=== PATIENT | female | born 1970 | race Asian ===

== ENCOUNTER → 2018-01-10 09:54 | Outpatient (CLI) | payer OTHER, SELFPAY ==
--- NOTE | 2018-01-10 | DI.MG.S_ITS ---
BILATERAL DIGITAL SCREENING MAMMOGRAM 3D/2D WITH CAD: 01/10/2018 Comparison is made to exams dated: 11/19/2013 mammogram and 11/20/2012 mammogram - [facility]. The tissue of both breasts is heterogeneously dense. This may lower the sensitivity of mammography. Current study was also evaluated with a Computer Aided Detection (CAD) system. No significant masses, calcifications, or other findings are seen in either breast. There has been no significant interval change. IMPRESSION: NEGATIVE There is no mammographic evidence of malignancy. A 1 year screening mammogram is recommended. This exam was interpreted at Station ID: [id number]. NOTE: For mammograms, a report in lay terms will be sent to the patient. Approximately 15% of breast malignancies will not be visualized mammographically. In the management of a palpable breast mass, a negative mammogram must not discourage biopsy of a clinically suspicious lesion. Electronically Signed By: Jarred valencia/regina:01/10/2018 16:13:13 letter sent: Normal Exam ACR BI-RADS Category 1: Negative 3341F
== END ==
PROVIDERS: Visit Provider Physician Assistant
DX: Z12.31 Encounter for screening mammogram for malignant neoplasm of breast (principal)
CPT/HCPCS: 77063; 77067

== ENCOUNTER → 2018-09-12 10:49 | Outpatient (CLI) | payer OTHER, SELFPAY ==
[2018-09-12 12:16] LABS: Alanine Aminotransferase 50 IU/L (9-52); Albumin 4.2 g/dL (3.5-5.0); Albumin Globulin Ratio 1.4 (1.0-2.8); Alkaline Phosphatase 79 U/L (38-126); Aspartate Aminotransferase 31 IU/L (14-36); Bilirubin Total 0.4 mg/dL (0.2-1.3); Bilirubin Unconjugated 0.3 mg/dL (0.0-1.1); Cholesterol 222 mg/dL (140-199); Globulin 2.9 g/dL (1.7-4.1); HDL Cholesterol 42 mg/dL (40-60); HEMOLYSIS < 15 (0-50); LDL Cholesterol Calculated 146 mg/dL (<100); Total Protein 7.1 g/dL (6.3-8.2); Triglycerides 168 mg/dL (35-150)
== END ==
PROVIDERS: Visit Provider Nurse Practitioner Family
DX: R94.5 Abnormal results of liver function studies (principal); E78.2 Mixed hyperlipidemia
CPT/HCPCS: 36415; 80061; 80076

== ENCOUNTER → 2018-12-14 09:41 | Outpatient (CLI) | payer OTHER, SELFPAY ==
[2018-12-14 10:22] LABS: Hemoglobin 14.1 g/dL (12.0-16.0); Mean Corpuscular HGB Conc 32.7 % (30-36); Mean Corpuscular Hemoglobin 25.6 PG (26-34); Mean Corpuscular Volume 78.2 fL (80-100); Platelet Count 351 X10^3/uL (150-400); Red Cell Distribution Width 13.8 % (11.6-14.8); White Blood Cell Count 10.2 X10^3/uL (4.5-11.0)
[2018-12-14 10:47] LABS: Alanine Aminotransferase 47 IU/L (9-52); Albumin 4.4 g/dL (3.5-5.0); Albumin Globulin Ratio 1.5 (1.0-2.8); Alkaline Phosphatase 92 U/L (38-126); Aspartate Aminotransferase 31 IU/L (14-36); BUN Creatinine Ratio 17.1 (6-22); Bilirubin Total 0.6 mg/dL (0.2-1.3); Blood Urea Nitrogen 12 mg/dL (7-17); Calcium 10.1 mg/dL (8.4-10.2); Carbon Dioxide 27 mmol/L (22-32); Chloride 101 mmol/L (98-107); Cholesterol 131 mg/dL (140-199); Estimated Glomerular Filt Rate > 60.0 mL/min (>60); Globulin 2.9 g/dL (1.7-4.1); Glucose 111 mg/dL (70-100); HDL Cholesterol 46 mg/dL (40-60); HEMOLYSIS < 15 (0-50); LDL Cholesterol Calculated 61 mg/dL (<100); Potassium 5.2 mmol/L (3.4-5.1); Sodium 139 mmol/L (137-145); Total Protein 7.3 g/dL (6.3-8.2); Triglycerides 118 mg/dL (35-150)
== END ==
PROVIDERS: PCP Nurse Practitioner Family; Visit Provider Nurse Practitioner Family
DX: Z00.00 Encounter for general adult medical examination without abnormal findings (principal); E78.2 Mixed hyperlipidemia
CPT/HCPCS: 36415; 80053; 80061; 85027

== ENCOUNTER → 2019-01-18 07:32 | Outpatient (CLI) | payer OTHER, SELFPAY ==
--- NOTE | 2019-01-18 07:33 | DI.MG.S_ITS ---
BILATERAL DIGITAL SCREENING MAMMOGRAM 3D/2D WITH CAD: 01/18/2019 CLINICAL: Routine screening. Comparison is made to exams dated: 01/10/2018 mammogram - [facility], 11/19/2013 mammogram, and 11/20/2012 mammogram - [facility]. The tissue of both breasts is heterogeneously dense. This may lower the sensitivity of mammography. Current study was also evaluated with a Computer Aided Detection (CAD) system. There are benign calcifications in both breasts. No significant masses, calcifications, or other findings are seen in either breast. There has been no significant interval change. IMPRESSION: There is no mammographic evidence of malignancy. A 1 year screening mammogram is recommended. This exam was interpreted at Station ID: [id number]. NOTE: For mammograms, a report in lay terms will be sent to the patient. Approximately 15% of breast malignancies will not be visualized mammographically. In the management of a palpable breast mass, a negative mammogram must not discourage biopsy of a clinically suspicious lesion. Electronically Signed By: David monzon/regina:01/18/2019 10:03:53 letter sent: Normal Exam ACR BI-RADS Category 2: Benign Finding(s) 3342F
== END ==
PROVIDERS: PCP Nurse Practitioner Family; Visit Provider Nurse Practitioner Family
DX: Z12.31 Encounter for screening mammogram for malignant neoplasm of breast (principal)
CPT/HCPCS: 77063; 77067

== ENCOUNTER → 2019-03-22 08:32 | Outpatient (CLI) | payer OTHER, SELFPAY ==
[2019-03-22 09:27] LABS: Hemoglobin A1C% w Est Avg Glu 7.2 % (4.0-6.0)
[2019-03-22 09:37] LABS: Glucose 129 mg/dL (70-100)
== END ==
PROVIDERS: PCP Nurse Practitioner Family; Visit Provider Nurse Practitioner Family
DX: R73.01 Impaired fasting glucose (principal); Z01.83 Encounter for blood typing
CPT/HCPCS: 36415; 82947; 83036; 86900; 86901

== ENCOUNTER → 2019-06-21 07:45 | Outpatient (CLI) | payer OTHER, SELFPAY ==
[2019-06-21 08:25] LABS: Hemoglobin A1C% w Est Avg Glu 6.4 % (4.0-6.0)
== END ==
PROVIDERS: PCP Nurse Practitioner Family; Referring Provider Nurse Practitioner Family; Visit Provider Nurse Practitioner Family
DX: E11.9 Type 2 diabetes mellitus without complications (principal)
CPT/HCPCS: 36415; 83036

== ENCOUNTER → 2019-09-24 08:17 | Outpatient (CLI) | payer OTHER, SELFPAY ==
[2019-09-24 10:16] LABS: Hemoglobin A1C% w Est Avg Glu 6.1 % (4.0-6.0)
[2019-09-24 10:33] LABS: BUN Creatinine Ratio 12.2 (6-22); Blood Urea Nitrogen 9 mg/dL (7-17); Calcium 9.8 mg/dL (8.4-10.2); Carbon Dioxide 27 mmol/L (22-32); Chloride 104 mmol/L (98-107); Estimated Glomerular Filt Rate > 60.0 mL/min (>60); Glucose 93 mg/dL (70-100); HEMOLYSIS < 15 (0-50); Potassium 5.1 mmol/L (3.4-5.1); Sodium 138 mmol/L (137-145)
== END ==
PROVIDERS: PCP Nurse Practitioner Family; Referring Provider Nurse Practitioner Family; Visit Provider Nurse Practitioner Family
DX: E11.9 Type 2 diabetes mellitus without complications (principal)
CPT/HCPCS: 36415; 80048; 83036

== ENCOUNTER → 2020-01-21 08:25 | Outpatient (CLI) | payer OTHER, SELFPAY ==
--- NOTE | 2020-01-21 | DI.MG.S_ITS ---
BILATERAL DIGITAL SCREENING MAMMOGRAM 3D/2D WITH CAD: 01/21/2020 CLINICAL: Routine screening. Comparison is made to exams dated: 01/18/2019 mammogram, 01/10/2018 mammogram - [facility], and 11/19/2013 mammogram - [facility]. The tissue of both breasts is heterogeneously dense. This may lower the sensitivity of mammography. Current study was also evaluated with a Computer Aided Detection (CAD) system. No significant masses, calcifications, or other findings are seen in either breast. There has been no significant interval change. IMPRESSION: NEGATIVE There is no mammographic evidence of malignancy. A 1 year screening mammogram is recommended. This exam was interpreted at Station ID: [id number]. NOTE: For mammograms, a report in lay terms will be sent to the patient. Approximately 15% of breast malignancies will not be visualized mammographically. In the management of a palpable breast mass, a negative mammogram must not discourage biopsy of a clinically suspicious lesion. Electronically Signed By: Faye thorne/regina:01/21/2020 10:12:46 letter sent: Normal Exam ACR BI-RADS Category 1: Negative 3341F
== END ==
PROVIDERS: PCP Nurse Practitioner Family; Referring Provider Nurse Practitioner Family; Visit Provider Nurse Practitioner Family
DX: Z12.31 Encounter for screening mammogram for malignant neoplasm of breast (principal)
CPT/HCPCS: 77063; 77067

== ENCOUNTER → 2020-03-25 07:58 | Outpatient (CLI) | payer OTHER, SELFPAY ==
[2020-03-25 09:56] LABS: Alanine Aminotransferase 22 IU/L (<35); Albumin 4.2 g/dL (3.5-5.0); Albumin Globulin Ratio 1.4 (1.0-2.8); Alkaline Phosphatase 64 U/L (38-126); Aspartate Aminotransferase 21 IU/L (14-36); BUN Creatinine Ratio 14.7 (6-22); Bilirubin Total 0.5 mg/dL (0.2-1.3); Blood Urea Nitrogen 11 mg/dL (7-17); Calcium 9.3 mg/dL (8.4-10.2); Carbon Dioxide 29 mmol/L (22-32); Chloride 104 mmol/L (98-107); Estimated Glomerular Filt Rate > 60.0 mL/min (>60); Glucose 101 mg/dL (70-100); HEMOLYSIS < 15 (0-50); Potassium 4.5 mmol/L (3.4-5.1); Sodium 138 mmol/L (137-145); Total Protein 7.2 g/dL (6.3-8.2)
[2020-03-25 10:24] LABS: Hemoglobin A1C% w Est Avg Glu 6.1 % (4.0-6.0)
== END ==
PROVIDERS: PCP Nurse Practitioner Family; Referring Provider Nurse Practitioner Family; Visit Provider Nurse Practitioner Family
DX: E11.9 Type 2 diabetes mellitus without complications (principal)
CPT/HCPCS: 36415; 80053; 83036

== ENCOUNTER → 2020-03-27 11:13 | Outpatient (CLI) | payer OTHER, SELFPAY ==
[2020-03-27 12:20] LABS: Cholesterol 144 mg/dL (140-199); HDL Cholesterol 54 mg/dL (40-60); LDL Cholesterol Calculated 66 mg/dL (<100); Triglycerides 119 mg/dL (35-150)
== END ==
PROVIDERS: PCP Nurse Practitioner Family; Visit Provider Nurse Practitioner Family
DX: E78.5 Hyperlipidemia, unspecified (principal)
CPT/HCPCS: 80061

== ENCOUNTER → 2020-11-14 07:53 | Outpatient (CLI) | payer OTHER, SELFPAY ==
[2020-11-14 08:52] LABS: Add Manual Diff / Slide Review NO; Basophils Absolute Auto 0 /uL (0-100); Basophils Percent Auto 0.4 % (0-2); Eosinophils Absolute Auto 500 /uL (0-450); Eosinophils Percent Auto 6.6 % (2-4); Hematocrit 40.3 % (36-46); Hemoglobin 13.3 g/dL (12.0-16.0); Lymphocytes Absolute Auto 2200 /uL (1100-4500); Lymphocytes Percent Auto 28.6 % (25-40); Mean Corpuscular HGB Conc 33.1 % (30-36); Mean Corpuscular Volume 78.7 fL (80-100); Monocytes Absolute Auto 400 /uL (0-900); Monocytes Percent Auto 5.5 % (3-14); Neutrophils Absolute Auto 4500 /uL (1500-7000); Neutrophils Percent Auto 58.9 % (50-75); Platelet Count 358 X10^3/uL (150-400); Red Blood Cell Count 5.12 X10^6/uL (4.0-5.2); Red Cell Distribution Width 13.9 % (11.6-14.8); White Blood Cell Count 7.6 X10^3/uL (4.5-11.0)
[2020-11-14 08:57] LABS: HEMOLYSIS < 15 (0-50); Iron 143 ug/dL (37-170)
[2020-11-14 09:11] LABS: Percent Iron Saturation 41 % (15-50); Total Iron Binding Capacity 349 ug/dL (265-497); Transferrin 272 mg/dL (206-381)
[2020-11-14 09:34] LABS: Ferritin 13 ng/mL (6-137)
== END ==
PROVIDERS: PCP Nurse Practitioner Family; Referring Provider Nurse Practitioner Family; Visit Provider Nurse Practitioner Family
DX: Z86.39 Personal history of other endocrine, nutritional and metabolic disease (principal)
CPT/HCPCS: 36415; 82728; 83540; 83550; 85025

== ENCOUNTER → 2020-12-05 08:09 | Outpatient (CLI) | payer OTHER, SELFPAY ==
[2020-12-05 09:47] LABS: Hemoglobin A1C% w Est Avg Glu 6.2 % (4.0-6.0)
[2020-12-05 09:49] LABS: Alanine Aminotransferase 36 IU/L (<35); Albumin 4.6 g/dL (3.5-5.0); Albumin Globulin Ratio 1.7 (1.0-2.8); Alkaline Phosphatase 74 U/L (38-126); Aspartate Aminotransferase 27 IU/L (14-36); BUN Creatinine Ratio 12.7 (6-22); Bilirubin Total 0.7 mg/dL (0.2-1.3); Blood Urea Nitrogen 9 mg/dL (7-17); Calcium 9.6 mg/dL (8.4-10.2); Carbon Dioxide 26 mmol/L (22-32); Chloride 105 mmol/L (98-107); Cholesterol 141 mg/dL (140-199); Estimated Glomerular Filt Rate > 60.0 mL/min (>60); Globulin 2.7 g/dL (1.7-4.1); Glucose 110 mg/dL (70-100); HDL Cholesterol 54 mg/dL (40-60); HEMOLYSIS < 15 (0-50); LDL Cholesterol Calculated 64 mg/dL (<100); Potassium 5.1 mmol/L (3.4-5.1); Sodium 139 mmol/L (137-145); Total Protein 7.3 g/dL (6.3-8.2); Triglycerides 117 mg/dL (35-150)
== END ==
PROVIDERS: PCP Nurse Practitioner Family; Referring Provider Nurse Practitioner Family; Visit Provider Nurse Practitioner Family
DX: R00.2 Palpitations (principal); E11.9 Type 2 diabetes mellitus without complications; E78.2 Mixed hyperlipidemia
CPT/HCPCS: 36415; 80053; 80061; 83036

== ENCOUNTER → 2021-01-23 09:16 | Outpatient (CLI) | payer OTHER, SELFPAY ==
--- NOTE | 2021-01-23 | DI.MG.S_ITS ---
BILATERAL DIGITAL SCREENING MAMMOGRAM 3D/2D WITH CAD: 01/23/2021 CLINICAL: Routine screening. Comparison is made to exams dated: 01/21/2020 mammogram, 01/18/2019 mammogram, 01/10/2018 mammogram - [facility], and 11/19/2013 mammogram - [facility]. The tissue of both breasts is heterogeneously dense. This may lower the sensitivity of mammography. Current study was also evaluated with a Computer Aided Detection (CAD) system. No significant masses, calcifications, or other findings are seen in either breast. There has been no significant interval change. IMPRESSION: NEGATIVE There is no mammographic evidence of malignancy. A 1 year screening mammogram is recommended. This exam was interpreted at Station ID: [id number]. NOTE: For mammograms, a report in lay terms will be sent to the patient. Approximately 15% of breast malignancies will not be visualized mammographically. In the management of a palpable breast mass, a negative mammogram must not discourage biopsy of a clinically suspicious lesion. Electronically Signed By: Mando medina/regina:01/23/2021 12:06:10 letter sent: Normal Exam ACR BI-RADS Category 1: Negative 3341F
== END ==
PROVIDERS: PCP Nurse Practitioner Family; Referring Provider Nurse Practitioner Family; Visit Provider Nurse Practitioner Family
DX: Z12.31 Encounter for screening mammogram for malignant neoplasm of breast (principal)
CPT/HCPCS: 77063; 77067

== ENCOUNTER → 2021-02-10 08:06 | Outpatient (CLI) | payer OTHER, SELFPAY ==
--- NOTE | 2021-02-10 08:07 | DI.US.S_ITS ---
PROCEDURE: US PELVIC COMPLETE INDICATIONS: DUB; IUD PLACEMENT TECHNIQUE: Real-time scanning was performed of the pelvic organs, with image documentation. Additional endovaginal scanning was necessary due to incomplete visualization of the adnexal and endometrial structures by transabdominal scanning. COMPARISON: None. FINDINGS: Uterus: Uterus is normal in size at 14.5 x 10.7 x 10.0 cm. The endometrium measures 19.1 mm in combined thickness. Anterior submucosal fibroid measuring 16 mm and there is an anterior intramural fibroid measuring up to 6.4 cm. Intrauterine device is suboptimally visualized. Ovaries: Right ovary is not visualized. Normal left ovary measuring 4.2 x 2.6 x 3.7 cm. Simple 3.1 cm left ovarian cyst. Other: No pathologic free abdominal or pelvic fluid. IMPRESSION: 1. 2 uterine fibroids, largest measuring up to 6.4 cm and the intrauterine device is not well visualized. 2. Mild thickening of the endometrial complex. Recommend short-term follow-up pelvic ultrasound in 6 weeks to assess for interval thinning. 3. Simple left ovarian cyst. Dictated by: Mango Ho [facility] Interpreted: Lilly Garcia MD on 02/10/2021 at 16:59 Approved by: Lilly Garcia MD, PhD on 02/10/2021 at 18:07
== END ==
PROVIDERS: PCP Nurse Practitioner Family; Referring Provider Nurse Practitioner Family; Visit Provider Nurse Practitioner Family
DX: N92.6 Irregular menstruation, unspecified (principal); D25.1 Intramural leiomyoma of uterus; D25.0 Submucous leiomyoma of uterus; N83.292 Other ovarian cyst, left side; R93.89 Abnormal findings on diagnostic imaging of other specified body structures; Z97.5 Presence of (intrauterine) contraceptive device
CPT/HCPCS: 76830; 76856

== ENCOUNTER → 2021-03-11 11:10 | Outpatient (CLI) | payer OTHER, SELFPAY ==
[2021-03-11 12:48] LABS: COVID19 -Nasal RAPID Negative (Negative)
== END ==
PROVIDERS: PCP Nurse Practitioner Family; Visit Provider Physician Assistant
DX: Z20.822 Contact with and (suspected) exposure to COVID-19 (principal)
CPT/HCPCS: 87635

== ENCOUNTER → 2021-03-13 13:29 | Outpatient (CLI) | payer OTHER, SELFPAY ==
--- NOTE | 2021-03-13 13:30 | DI.ECHO.S_ITS ---
[facility] +---------+ : : [address] [place] : : : : [id number] : : : : Phone: [phone]+ Echocardiogram Report + + :Name: MELODY SUE V Study Date: 03/13/2021 Height: 60 in : :[facility] ReadingLocation: Weight: 175 lb : : Gender: Female BSA: 1.8 m2 : :: 1970 Age: 50 yrs BP: 164/100 mmHg: :Reason For Study: Palpitations, abnormal EKG : : Performed By: Daniel Keith : :Referring: LEEANNE MCLAIN : + + Interpretation Summary The left ventricle is normal in size. The ejection fraction is estimated to be 60-65%. The right ventricle is normal in size and function. 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 Please repeat limited echo with bubble contrast study. If it is abnormal consider JOHN. Correlate clinically. No significant valvular pathology seen. The IVC is of normal diameter and collapses greater than 50% with a sniff. This suggests a low right atrial pressure of 3 mm Hg. Procedure: A two-dimensional transthoracic echocardiogram with color flow and Doppler was performed. The study quality was technically adequate. There is no prior echocardiogram noted for this patient. The patient was in normal sinus rhythm during the exam. Left Ventricle: The left ventricle is normal in size. Proximal septal thickening is noted. There is no echo evidence for significant left ventricular outflow tract obstruction. There is no thrombus. The ejection fraction is estimated to be 60-65%. There are no focal wall motion abnormalities. Diastolic parameters suggest probable normal left ventricular diastolic function and normal filling pressures. Right Ventricle: The right ventricle is normal in size and function. Atria: Both atria are normal in size. A prominent eustachian valve is noted. 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 Please repeat limited echo with bubble contrast study. If it is abnormal consider JOHN. Correlate clinically. Mitral Valve: The mitral valve is normal. There is trace mitral regurgitation. Aortic Valve: The aortic valve is trileaflet. The aortic valve opens well. There is trace aortic regurgitation. Tricuspid Valve: The tricuspid valve is normal. There is mild tricuspid regurgitation. The right ventricular systolic pressure is estimated to be at least 28 mmHg based on an estimated right atrial pressure of 3 mm Hg. Pulmonic Valve: The pulmonic valve is normal in structure and function. Great Vessels: The aortic root is normal size. The ascending aorta is normal in size. The aortic arch is normal in size. The IVC is of normal diameter and collapses greater than 50% with a sniff. This suggests a low right atrial pressure of 3 mm Hg. Pericardium/ Pleura There is no pericardial effusion. There is no pleural effusion. MMode/2D Measurements & Calculations LVIDd: 3.7 cm LVOT diam: 1.6 cm LVIDs: 2.2 cm Ao root diam: 2.9 cm FS: 40.7 % asc Aorta Diam: 3.1 cm IVSd: 0.88 cm Ao Arch Diam (Prox Trans): 2.8 cm LVPWd: 1.00 cm LV reardon. diameter/BSA (cm/m^2): 2.1 LV sys. diameter/BSA (cm/m^2): 1.3 LA A2 area: 13.0 cm2 RA long axis: 4.5 cm LA A4 area: 15.4 cm2 RA area: 11.8 cm2 LA length (vol): 5.2 cm RA vol: 26.2 ml LA vol: 32.9 ml RA : 14.8 ml/m2 LA vol index: 18.7 ml/m2 TAPSE: 2.9 cm Doppler Measurements & Calculations Ao V2 max: 133.0 cm/sec LVOT Max Mukund: 128.6 cm/sec Ao V2 mean: 103.0 cm/sec LV V1 max P.6 mmHg Ao max P.1 mmHg LV V1 VTI: 27.5 cm Ao mean P.5 mmHg DANIEL(I,D): 1.9 cm2 Ao V2 VTI: 29.1 cm DANIEL(V,D): 2.0 cm2 sev ratio: 0.95 DANIEL indexed to BSA (cm^2/m^2): 1.1 MV E max mukund: 84.6 cm/sec TR max mukund: 247.4 cm/sec MV A max mukund: 43.6 cm/sec TR max P.5 mmHg MV E/A: 1.9 PA V2 max: 124.4 cm/sec Med Peak E' Mukund: 9.6 cm/sec PA V2 mean: 87.4 cm/sec E/E' med: 8.8 PA mean P.3 mmHg Lat Peak E' Mukund: 11.6 cm/sec PA pr(Accel): 43.0 mmHg E/E' lat: 7.3 E/e' average: 8.0 MV dec time: 0.19 sec [facility]): 55.8 ml Reading Physician:03:24 PM
--- NOTE | 2021-03-13 19:26 | DI.NM.S_ITS ---
DATE OF SERVICE: 03/13/2021 PROCEDURE PERFORMED: Exercise treadmill stress test without imaging. ORDERING PROVIDER: SURENDRA Sharif. INDICATIONS: The patient is a 50-year-old diabetic female with recurrent palpitations. FINDINGS: 1. The patient was able to exercise for 6 minutes, 37 seconds on a standard Elvis protocol, suggesting moderately reduced exercise capacity with an OLLIE of +19%, achieving 7.0 METs. 2. She had a normal heart rate response to exercise, achieving a maximum heart rate of 172 BPM (100% of her predicted maximum). She had a hypertensive blood pressure response to exercise with a resting blood pressure of 154/90 that increased to a maximum of 220/110. 3. She had no chest discomfort or other anginal symptoms. 4. Her resting ECG shows sinus rhythm with mild nonspecific inferior ST- segment abnormalities. With exercise, there are no significant ST-segment shifts. There were no arrhythmias. IMPRESSION: 1. Normal exercise treadmill stress test for ischemia. 2. Moderately reduced exercise capacity without angina or arrhythmias. She had a significant hypertensive blood pressure response to exercise. Debi Martinez - ADALID/norma/thanh doc#: [id number]/job#: [id number] dd: 03/13/2021 17:30:00 dt: 03/13/2021 18:35:00 DICTATING /COPIES TO: Ra Gamboa MD COPIES MNE: MIGUEL;
== END ==
PROVIDERS: PCP Nurse Practitioner Family; Referring Provider Nurse Practitioner Family; Visit Provider Nurse Practitioner Family
DX: R00.2 Palpitations (principal); E11.9 Type 2 diabetes mellitus without complications
CPT/HCPCS: 93017; 93306

== ENCOUNTER → 2021-11-17 07:38 | Outpatient (CLI) | payer OTHER, SELFPAY ==
[2021-11-17 08:48] LABS: Add Manual Diff / Slide Review NO; Basophils Absolute Auto 0 /uL (0-100); Basophils Percent Auto 0.4 % (0-2); Eosinophils Absolute Auto 300 /uL (0-450); Eosinophils Percent Auto 4.6 % (2-4); Hematocrit 34.8 % (36-46); Hemoglobin 11.3 g/dL (12.0-16.0); Lymphocytes Absolute Auto 2200 /uL (1100-4500); Lymphocytes Percent Auto 29.4 % (25-40); Mean Corpuscular HGB Conc 32.5 % (30-36); Mean Corpuscular Hemoglobin 23.6 PG (26-34); Mean Corpuscular Volume 72.7 fL (80-100); Monocytes Absolute Auto 600 /uL (0-900); Monocytes Percent Auto 8.8 % (3-14); Neutrophils Absolute Auto 4200 /uL (1500-7000); Neutrophils Percent Auto 56.8 % (50-75); Platelet Count 471 X10^3/uL (150-400); Red Blood Cell Count 4.79 X10^6/uL (4.0-5.2); Red Cell Distribution Width 14.4 % (11.6-14.8); White Blood Cell Count 7.3 X10^3/uL (4.5-11.0)
[2021-11-17 09:03] LABS: Hemoglobin A1C% w Est Avg Glu 6.2 % (4.0-6.0)
[2021-11-17 09:08] LABS: Alanine Aminotransferase 19 IU/L (<35); Albumin 4.5 g/dL (3.5-5.0); Albumin Globulin Ratio 1.6 (1.0-2.8); Alkaline Phosphatase 70 U/L (38-126); Aspartate Aminotransferase 21 IU/L (14-36); BUN Creatinine Ratio 14.9 (6-22); Bilirubin Total 0.6 mg/dL (0.2-1.3); Blood Urea Nitrogen 10 mg/dL (7-17); Carbon Dioxide 26 mmol/L (22-32); Chloride 104 mmol/L (98-107); Cholesterol 126 mg/dL (140-199); Estimated Glomerular Filt Rate > 60 mL/min (>60); Globulin 2.8 g/dL (1.7-4.1); Glucose 109 mg/dL (70-100); HDL Cholesterol 44 mg/dL (40-60); HEMOLYSIS < 15 (0-50); LDL Cholesterol Calculated 64 mg/dL (<100); Potassium 4.2 mmol/L (3.4-5.1); Sodium 139 mmol/L (137-145); Total Protein 7.3 g/dL (6.3-8.2); Triglycerides 88 mg/dL (35-150)
[2021-11-17 09:24] LABS: Creatinine Urine Random 157.2 mg/dL
[2021-11-17 09:40] LABS: TSH w/ Reflex to FT4 1.99 uIU/mL (0.47-4.68)
[2021-11-17 09:43] LABS: Microalbumi Creatinin Ratio Ur 181.2 ug/mg CR (<30); Microalbumin Urine Random 28.5 mg/dL (0-1.6)
== END ==
PROVIDERS: PCP Family Medicine; Referring Provider Family Medicine; Visit Provider Family Medicine
DX: E11.9 Type 2 diabetes mellitus without complications (principal); E78.2 Mixed hyperlipidemia; Z86.39 Personal history of other endocrine, nutritional and metabolic disease
CPT/HCPCS: 36415; 80053; 80061; 82043; 82570; 83036; 84443; 85025

== ENCOUNTER → 2021-11-20 14:04 | Outpatient (CLI) | payer OTHER, SELFPAY ==
--- NOTE | 2021-11-20 14:05 | DI.US.S_ITS ---
PROCEDURE: US PELVIC COMPLETE INDICATIONS: IUD check/fibroids TECHNIQUE: Real-time scanning was performed of the pelvic organs, with image documentation. Additional endovaginal scanning was necessary due to incomplete visualization of the adnexal and endometrial structures by transabdominal scanning. COMPARISON: [facility], US, US PELVIC COMPLETE, 04/07/2021, 11:03. FINDINGS: Uterus: Uterus is anteverted and normal in size at 10.6 x 6.4 x 8. 4 cm. The myometrium is heterogeneous. The endometrium is not well seen. 7.3 cm intramural fibroid. No IUD. Ovaries: Right ovary is grossly normal measuring 2.7 x 2.2 x 2.5 cm the left ovary is not seen. No adnexal masses seen. Other: No pathologic free abdominal or pelvic fluid. IMPRESSION: 1. No IUD seen. 2. 7.3 cm intramural fibroid. We strive to produce accurate, complete, and clear reports of imaging services. To assist us in improving patient care, this report was composed using standard report templates and voice recognition software. Therefore, it may contain abnormal punctuation, insertions and/or omissions. Occasional wrong-word or sound-alike substitutions may occur. Though we review the report and make efforts to correct it, we do recommend that the report be read carefully in proper context to recognize any text inaccuracies. Dictated by: Mango CARBONE Interpreted: Karla Art MD on 11/20/2021 at 14:50 Transcribed by: MARLIN on 11/20/2021 at 14:51 Approved by: Karla Art M.D. on 11/20/2021 at 15:27
[2021-11-24 09:29] LABS: Fecal Immunochemical Test Negative (Negative)
== END ==
PROVIDERS: PCP Family Medicine; Referring Provider Obstetrics & Gynecology; Visit Provider Obstetrics & Gynecology
DX: Z30.431 Encounter for routine checking of intrauterine contraceptive device (principal); Z12.11 Encounter for screening for malignant neoplasm of colon; T83.32XA Displacement of intrauterine contraceptive device, initial encounter; D25.1 Intramural leiomyoma of uterus; D21.9 Benign neoplasm of connective and other soft tissue, unspecified; E11.9 Type 2 diabetes mellitus without complications; E78.2 Mixed hyperlipidemia; Z86.39 Personal history of other endocrine, nutritional and metabolic disease
CPT/HCPCS: 76856; 82274

== ENCOUNTER → 2022-02-15 15:48 | Outpatient (CLI) | payer OTHER, SELFPAY ==
--- NOTE | 2022-02-15 15:51 | DI.MG.S_ITS ---
BILATERAL DIGITAL SCREENING MAMMOGRAM 3D/2D WITH CAD: 02/15/2022 CLINICAL: Routine screening. Comparison is made to exams dated: 01/23/2021 mammogram, 01/21/2020 mammogram, and 01/18/2019 mammogram - [facility]. Both breasts are heterogeneously dense, which may obscure small masses (category c / 51-75% glandular tissue). Current study was also evaluated with a Computer Aided Detection (CAD) system. No significant masses, calcifications, or other findings are seen in either breast. There has been no significant interval change. IMPRESSION: NEGATIVE There is no mammographic evidence of malignancy. A 1 year screening mammogram is recommended. Based on the Tyrer Cuzick model (a risk assessment model) the patient's lifetime risk is 11.5% and her 10 year risk is 2.6%. According to the ACR, ACS, and NCCN guidelines, an annual breast MRI exam along with mammogram is recommended if the patient's lifetime risk is 20% or greater. This exam was interpreted at Station ID: [id number]. NOTE: For mammograms, a report in lay terms will be sent to the patient. Approximately 15% of breast malignancies will not be visualized mammographically. In the management of a palpable breast mass, a negative mammogram must not discourage biopsy of a clinically suspicious lesion. Electronically Signed By: Faye thorne/regina:02/16/2022 13:26:02 letter sent: Normal Exam ACR BI-RADS Category 1: Negative 3341F
== END ==
PROVIDERS: PCP Family Medicine; Referring Provider Family Medicine; Visit Provider Family Medicine
DX: Z12.31 Encounter for screening mammogram for malignant neoplasm of breast (principal)
CPT/HCPCS: 77063; 77067

== ENCOUNTER → 2022-03-08 07:02 | Outpatient (CLI) | payer OTHER, SELFPAY ==
[2022-03-08 07:57] LABS: Add Manual Diff / Slide Review NO; Basophils Absolute Auto 0 /uL (0-100); Basophils Percent Auto 0.6 % (0-2); Eosinophils Absolute Auto 200 /uL (0-450); Eosinophils Percent Auto 3.6 % (2-4); Hematocrit 37.6 % (36-46); Hemoglobin 12.1 g/dL (12.0-16.0); Lymphocytes Absolute Auto 2300 /uL (1100-4500); Lymphocytes Percent Auto 35.7 % (25-40); Mean Corpuscular HGB Conc 32.3 % (30-36); Mean Corpuscular Hemoglobin 23.6 PG (26-34); Monocytes Absolute Auto 400 /uL (0-900); Monocytes Percent Auto 6.8 % (3-14); Neutrophils Absolute Auto 3400 /uL (1500-7000); Neutrophils Percent Auto 53.3 % (50-75); Platelet Count 372 X10^3/uL (150-400); Red Blood Cell Count 5.14 X10^6/uL (4.0-5.2); Red Cell Distribution Width 19.8 % (11.6-14.8); White Blood Cell Count 6.4 X10^3/uL (4.5-11.0)
[2022-03-08 08:10] LABS: Hemoglobin A1C% w Est Avg Glu 6.9 % (4.0-6.0)
[2022-03-08 08:17] LABS: HEMOLYSIS < 15 (0-50); Iron 86 ug/dL (37-170)
[2022-03-08 08:31] LABS: Percent Iron Saturation 23 % (15-50); Total Iron Binding Capacity 379 ug/dL (265-497); Transferrin 303 mg/dL (206-381)
[2022-03-08 08:39] LABS: Microalbumi Creatinin Ratio Ur 41.2 ug/mg CR (<30); Microalbumin Urine Random 5.2 mg/dL (0-1.6)
[2022-03-08 08:55] LABS: Ferritin 12 ng/mL (6-137)
== END ==
PROVIDERS: PCP Family Medicine; Referring Provider Family Medicine; Visit Provider Family Medicine
DX: E11.9 Type 2 diabetes mellitus without complications (principal); E78.2 Mixed hyperlipidemia; R80.9 Proteinuria, unspecified; Z86.39 Personal history of other endocrine, nutritional and metabolic disease
CPT/HCPCS: 36415; 82043; 82570; 82728; 83036; 83540; 83550; 85025

== ENCOUNTER 2022-06-13 15:19 | Emergency (ER) | payer OTHER, SELFPAY ==
[2022-06-13 15:23] VITALS: BP 158/92; PULSE 89; RESP 16; TEMP 36.3; O2SAT 100; BMI 34.3
--- NOTE | 2022-06-13 18:46 | ED_ITS ---
HPI - Female Genitourinary <Krystina Du PA-C - Last Filed: 06/13/22 19:10> General Chief complaint: Abdominal Pain Stated complaint: IUD coming out/bleeding Time Seen by Provider: 06/13/22 15:51 Source: patient Mode of arrival: Ambulatory History of Present Illness HPI Narrative: 51-year-old female with history of IUD in place, fibroids, diabetes type 2 presents to the ED with concern for possible IUD starting to come out on its own. Patient states that she has irregular periods and sometimes persistent spotting and has IUDs because of this. She also thinks that she may be menopausal. She had a problem with her IUD last year and it came out early on its own she had to have it removed in December but had another 1 placed about a month later. She states that she had a period of spotting for about 1 month from late March until May 27 but then had 3 weeks with no bleeding and then her period started on June 09. She states that her period has been a little heavier than usual she was having some fairly intense cramping on Tuesday 2 days ago and yesterday she was in the shower and washing herself and realize that the string from her IUD was hanging down out of her vagina, she also states that she had some big dark clots coming out of her vagina which is unusual when she is on her period. This morning she said that she had some very heavy bleeding that was dark colored and had to put a diaper on to contain it. Since that time she has not had persistent heavy bleeding. She endorses some mild intermittent pelvic cramping at this point similar to her period cramps. She is requesting to have the IUD removed as she feels it is starting to come out on its own. She states that she does not want to start control pills today and will just follow-up with her provider regarding placing a new IUD. She has no concern for as her has had his vasectomy. She has no concern for sexually transmitted infections and does not desire testing for this today. She denies dizziness, lightheadedness, shortness of breath, persistent heavy bleeding, bright red bleeding, dysuria, abdominal pain low back pain or any other symptoms. Related Data Home Medications Medication Instructions Recorded Confirmed acetaminophen 500 mg tablet 1,000 mg PO DAILY PRN Pain 09/07/18 03/11/22 (Tylenol Extra Strength) levonorgestrel 21 mcg/24 hours (8 intrauterine 12/30/21 03/11/22 yrs) 52 mg intrauterine device (Mirena) Previous Rx's Medication Instructions Recorded miscellaneous medical supply 1 each miscellaneous BID #1 ea 04/03/19 (Blood Pressure Cuff) blood sugar diagnostic (Blood #100 ea 03/13/20 Glucose Test strips) lancets 30 gauge #100 ea 03/13/20 blood-glucose meter #1 ea 03/27/20 atorvastatin 20 mg tablet 20 mg PO BEDTIME #90 tabs 11/10/21 triamcinolone acetonide 0.1 % 1 applic topical BID #30 grams 11/10/21 topical cream ferrous sulfate 325 mg (65 mg 325 mg PO DAILY #90 tabs 12/07/21 iron) tablet,delayed release losartan 50 mg tablet 50 mg PO DAILY #90 tabs 12/07/21 metformin 500 mg tablet 500 mg PO BID #180 tabs 02/12/22 Allergies Allergy/AdvReac Type Severity Reaction Status Date / Time No Known Drug Allergies Allergy Unverified 03/11/22 14:53 Review of Systems <Krystina Du PA-C - Last Filed: 06/13/22 19:10> Review of Systems Narrative: Unremarkable except as noted in the HPI Patient History <Krystina Du PA-C - Last Filed: 06/13/22 19:10> Medical History Chicken pox (~1999) Eczema (~1997) Elevated fasting blood sugar Fibroids (~2015) Foot pain Hemorrhoid (~1996) History of iron deficiency Hyperlipidemia Intermittent palpitations (2016) IUD (intrauterine device) in place (05/2020) Mixed hyperlipidemia Type 2 diabetes mellitus (02/2019) Surgical History History of hysteroscopy (04/2015) Family History Father Hypertension Diabetes mellitus Hyperlipidemia Stroke Mother Diabetes mellitus Stroke Hyperlipidemia Sister Diabetes mellitus Gallstones Sister Diabetes mellitus Grandmother Diabetes mellitus Grandfather Hypertension Stroke History of heart disease Grandmother Hypertension Substance Use Type: does not use Exam <Krystina Du PA-C - Last Filed: 06/13/22 19:10> Narrative Exam Narrative: MAGDALENE Marin present for IUD removal as database marketing manager/assistant toddler teacher GENERAL: 51 year old patient appears stated age. Well-developed patient, in mild distress. HEAD: Atraumatic. Normocephalic. EYES: Pupils equal round and reactive. Extraocular motions intact. No scleral icterus. No injection or drainage. ENT: Nose without bleeding, purulent drainage. Airway patent. NECK: Trachea midline. Non tender CARDIOVASCULAR: Regular rate and rhythm without murmurs, gallops, or rubs. RESPIRATORY: Clear to auscultation. Breath sounds equal bilaterally. No wheezes, rales, or rhonchi. GASTROINTESTINAL: Abdomen soft, non-tender, nondistended. /PELVIC: External exam is unremarkable with a small amount of dark blood present at the vaginal opening. There is 1 IUD string protruding from the vagina approximately 1 in. Speculum is placed carefully looking for evidence of IUD in the vagina, IUD is found to be partially retained in the cervix with approximately 1-1/2 cm protruding from the cervix. IUD is removed with sponge forceps without difficulty see procedure above. EXTREMITIES: No edema or joint tenderness. BACK: Nontender without deformity or crepitance. No flank tenderness. NEURO: AOx3. SKIN: No rash or erythema of visible areas Initial Vital Signs Initial Vital Signs: Vital Signs Temperature 97.3 F L 06/13/22 15:23 Pulse Rate 89 06/13/22 15:23 Respiratory Rate 16 06/13/22 15:23 Blood Pressure 158/92 H 06/13/22 15:23 Pulse Oximetry 100 06/13/22 15:23 Oxygen Delivery Method Room Air 06/13/22 15:23 <Murray Watkins DO - Last Filed: 06/14/22 08:06> Initial Vital Signs Initial Vital Signs: Vital Signs Temperature 97.3 F L 06/13/22 15:23 Pulse Rate 89 06/13/22 15:23 Respiratory Rate 16 06/13/22 15:23 Blood Pressure 158/92 H 06/13/22 15:23 Pulse Oximetry 100 06/13/22 15:23 Oxygen Delivery Method Room Air 06/13/22 15:23 Procedures <Krystina Du PA-C - Last Filed: 06/13/22 19:10> Foreign Body OTHER Time of procedure: 18:35 Time Out Performed: yes Foreign Body Removal Site: vagina and other (cervix, IUD) Description of foreign body: other (Mirena IUD, intact) Sedation/Analgesia: none (patient declined anything for pain) Technique: removal with forceps and other (speculum and sponge forceps) Confirmed by:: direct visualization Complications: none Post-procedure exam: awake, alert, normal BP, normal HR and normal O2 sat Course <Krystina Du PA-C - Last Filed: 06/13/22 19:10> Vital Signs Vital signs: Vital Signs - 8 hr 06/13/22 15:23 Temperature 97.3 F L Pulse Rate 89 Respiratory Rate 16 Blood Pressure 158/92 H Pulse Oximetry 100 Oxygen Delivery Method Room Air <Murray Watkins DO - Last Filed: 06/14/22 08:06> Vital Signs Vital signs: Vital Signs - 8 hr 06/13/22 15:23 Temperature 97.3 F L Pulse Rate 89 Respiratory Rate 16 Blood Pressure 158/92 H Pulse Oximetry 100 Oxygen Delivery Method Room Air MDM - Female Genitourinary <Krystina Du PA-C - Last Filed: 06/13/22 19:10> Differential Diagnosis Differential diagnosis: Likely dysmenorrhea and other (encounter for IUD removal, uterine cramping) Medical Records Attestation: I reviewed the patient's medical records. [facility] Narrative Medical decision making narrative: 51-year-old female presenting today history of IUD in place, previous expulsion of IUD that required early removal, also with history of fibroids complaining of 4 days of bleeding consistent with her. With some heavy bleeding this morning and noting strings from her IUD coming out of her vagina yesterday. Patient requested to have her IUD removed. Plans follow-up with her PCP. Considered imaging however patient was having no pelvic pain except for very mild intermittent cramping, and given that she has no persistent heavy bleeding and IUD strings are protruding from the vagina feel imaging is not necessary. Patient is consented to IUD removal procedure, and it is performed with female database marketing manager RN in the room without difficulty as above in procedures. Patient is advised to follow up closely with her primary care provider, declines control replacement therapy at this time. Follow-up plan discussed, return precautions provided, all questions answered. Discharge Plan Departure Patient Disposition: Home Clinical Impression: Encounter for IUD removal Activity Restrictions/Additional Instructions: Thank you for letting us be part of your care today in the emergency department. You came in with concern that your IUD might need to be removed as yesterday you noted that the strings were hanging down out of the vagina. After discussing the procedure and going through risks and potential complications we did a pelvic exam and successfully removed your Mirena IUD today. And showed it to you afterwards to confirm it was completely removed. I suspect that your clotting you had over the last few days should improve now that this IUD is out of your cervix. It was partially out of your cervix on its own on exam. I recommend that you follow-up with your primary care provider/woman's health provider regarding having a new IUD placed and or looking for other options for control/hormonal regulation for bleeding control since this is the 2nd time you have had to have your IUD removed early as it has come out on its own. If you develop any new or concerning symptoms do not hesitate to be re-evaluated or present to the emergency department. There is no evidence of an emergent or life threatening illness at this time, but follow up with your doctor in 1-2 days is recommended nonetheless to continue to rule out serious underlying causes of your symptoms. Please call the office for an appointment. Please return to the Emergency Department for any worsening or persistent symptoms. Please take medications as directed. Prescriptions: No Action (DME) lancets 30 gauge misc See Rx Instructions .ROUTE .MEDSUPPLY Qty: 100 3RF Rx Instructions: use to check blood sugar daily- brand per ins (DME) Blood Glucose Test Strip See Rx Instructions .ROUTE .MEDSUPPLY Qty: 100 3RF Rx Instructions: use to check blood sugar daily- brand per ins. metformin 500 mg tablet 500 mg PO BID Qty: 180 3RF Blood Pressure Cuff Misc 1 each MISC BID Qty: 1 0RF ferrous sulfate 325 mg (65 mg iron) tablet,delayed release (DR/EC) 325 mg PO DAILY Qty: 90 3RF losartan 50 mg tablet 50 mg PO DAILY Qty: 90 3RF acetaminophen [Tylenol Extra Strength] 500 mg tablet 1,000 mg PO DAILY PRN (Reason: Pain) Mirena 20 mcg/24 hours (7 yrs) 52 mg intrauterine device intrauterine Rx Instructions: Inserted 12/30/21 (DME) blood-glucose meter Kit See Rx Instructions .ROUTE .MEDSUPPLY Qty: 1 0RF Rx Instructions: use to check fasting blood sugar daily- brand per ins atorvastatin 20 mg tablet 20 mg PO BEDTIME Qty: 90 3RF triamcinolone acetonide 0.1 % cream 1 applic TOP BID Qty: 30 3RF Referrals: Erwin Woodruff MD [Primary Care Provider] - Stand Alone Forms: Patient Portal/API <Murray Watkins DO - Last Filed: 06/14/22 08:06> Cosign ED Attending Noraature Attestation: I was immediately available in the department for consultation. Documentation has been reviewed. I agree with assessment and plan.
[2022-06-13 19:12] VITALS: BP 141/80; PULSE 78; RESP 14; O2SAT 99
== END 2022-06-13 19:26 | disposition home or self-care (01) ==
PROVIDERS: Emergency Provider Student in an Organized Health Care Education/Training Program; PCP Family Medicine
DX: Z30.432 Encounter for removal of intrauterine contraceptive device (principal); N93.9 Abnormal uterine and vaginal bleeding, unspecified
CPT/HCPCS: 58301; 99281

== ENCOUNTER → 2022-07-09 06:44 | Outpatient (CLI) | payer OTHER, SELFPAY ==
[2022-07-09 09:55] LABS: Creatinine Urine Random 50.9 mg/dL
[2022-07-09 09:59] LABS: Microalbumi Creatinin Ratio Ur 39.2 ug/mg CR (<30)
[2022-07-10 06:08] LABS: Labcorp Hemoglobin (Hb) A1c 6.5 % (4.8-5.6)
== END ==
PROVIDERS: PCP Family Medicine; Referring Provider Family Medicine; Visit Provider Family Medicine
DX: E11.9 Type 2 diabetes mellitus without complications (principal); R80.9 Proteinuria, unspecified
CPT/HCPCS: 36415; 82043; 82570; 83036

== ENCOUNTER → 2022-11-12 06:47 | Outpatient (CLI) | payer OTHER, SELFPAY ==
[2022-11-12 07:51] LABS: Add Manual Diff / Slide Review NO; Basophils Absolute Auto 0 /uL (0-100); Basophils Percent Auto 0.5 % (0-2); Eosinophils Absolute Auto 200 /uL (0-450); Eosinophils Percent Auto 3.6 % (2-4); Hematocrit 36.4 % (36-46); Lymphocytes Absolute Auto 2000 /uL (1100-4500); Lymphocytes Percent Auto 31.1 % (25-40); Mean Corpuscular HGB Conc 32.9 % (30-36); Mean Corpuscular Hemoglobin 24.9 PG (26-34); Mean Corpuscular Volume 75.6 fL (80-100); Monocytes Absolute Auto 500 /uL (0-900); Monocytes Percent Auto 7.2 % (3-14); Neutrophils Absolute Auto 3700 /uL (1500-7000); Neutrophils Percent Auto 57.6 % (50-75); Platelet Count 382 X10^3/uL (150-400); Red Blood Cell Count 4.82 X10^6/uL (4.0-5.2); Red Cell Distribution Width 15.5 % (11.6-14.8); White Blood Cell Count 6.5 X10^3/uL (4.5-11.0)
[2022-11-12 07:53] LABS: Hemoglobin A1C% w Est Avg Glu 6.9 % (4.0-6.0)
[2022-11-12 08:02] LABS: Alanine Aminotransferase 57 IU/L (<35); Albumin 4.2 g/dL (3.5-5.0); Albumin Globulin Ratio 1.6 (1.0-2.8); Alkaline Phosphatase 81 U/L (38-126); Aspartate Aminotransferase 34 IU/L (14-36); BUN Creatinine Ratio 14.1 (6-22); Bilirubin Total 0.5 mg/dL (0.2-1.3); Blood Urea Nitrogen 9 mg/dL (7-17); Carbon Dioxide 28 mmol/L (22-32); Chloride 103 mmol/L (98-107); Cholesterol 140 mg/dL (140-199); Estimated Glomerular Filt Rate > 60 mL/min (>60); Globulin 2.6 g/dL (1.7-4.1); Glucose 113 mg/dL (70-100); HDL Cholesterol 49 mg/dL (40-60); HEMOLYSIS < 15 (0-50); LDL Cholesterol Calculated 65 mg/dL (<100); Potassium 4.6 mmol/L (3.4-5.1); Sodium 137 mmol/L (137-145); Total Protein 6.8 g/dL (6.3-8.2); Triglycerides 128 mg/dL (35-150)
[2022-11-12 10:49] LABS: Creatinine Urine Random 39.5 mg/dL
[2022-11-12 10:57] LABS: Microalbumi Creatinin Ratio Ur 27.8 ug/mg CR (<30); Microalbumin Urine Random 1.1 mg/dL (0-1.6)
[2022-11-15 16:53] LABS: Fecal Immunochemical Test Negative (Negative)
== END ==
PROVIDERS: PCP Family Medicine; Referring Provider Family Medicine; Visit Provider Family Medicine
DX: Z12.11 Encounter for screening for malignant neoplasm of colon (principal); E11.9 Type 2 diabetes mellitus without complications; E78.2 Mixed hyperlipidemia; Z86.39 Personal history of other endocrine, nutritional and metabolic disease
CPT/HCPCS: 36415; 80053; 80061; 82043; 82274; 82570; 83036; 84443; 85025

== ENCOUNTER → 2023-01-06 06:52 | Outpatient (CLI) | payer OTHER, SELFPAY ==
--- NOTE | 2023-01-06 06:53 | DI.ECHO.S_ITS ---
[facility]+ [facility] +---------+ : : [address] [place] [address] : : : : [id number] : : : : Phone: [phone]+ Echocardiogram Report + + :Name: MELODY SUE V Study Date: 01/06/2023 Height: 60 in : :[facility] ReadingLocation: Weight: 178 lb : : Gender: Female BSA: 1.8 m2 : :: 1970 Age: 52 yrs BP: 151/107 mmHg: :Reason For Study: Cardiac Murmur : :Ordering Physician: SHRUTHI, : :CRISTIN Performed By: Rona Byrd : :Referring: CRISTIN HAWKINS : + + Interpretation Summary The left ventricle is normal in size and wall thickness. The left ventricular ejection fraction is normal. The ejection fraction is estimated to be 55-60%. The right ventricle is mildly dilated. The right ventricular systolic function is normal. Injection of contrast documented an interatrial shunt. Left to right shunting is visible via color flow doppler. Valsalva maneuver demonstrated significant reversal of blood flow from right to left as bubble contrast study became positive with Valsalva maneuver. There is mild to moderate tricuspid regurgitation. The right ventricular systolic pressure is estimated to be at least 26 mmHg based on an estimated right atrial pressure of 3 mm Hg. Consider JOHN to assess intra-atrial septum to assess ASD/PFO Procedure: A two-dimensional transthoracic echocardiogram with color flow and Doppler was performed. The study quality was technically adequate. Comparison is made with the echocardiogram of 03/13/2021. A saline contrast injection was performed to assess for cardiac shunting. The patient was in normal sinus rhythm during the exam. Left Ventricle: The left ventricle is normal in size and wall thickness. There is no thrombus. The ejection fraction is estimated to be 55-60%. The left ventricular ejection fraction is normal. There are no focal wall motion abnormalities. Diastolic parameters suggest a relaxation abnormality of the left ventricle, consistent with probable normal filling pressures. Right Ventricle: The right ventricle is mildly dilated. The right ventricular systolic function is normal. Atria: The left atrial size is normal. Right atrial size is normal. A prominent eustachian valve is noted. Injection of contrast documented an interatrial shunt. Left to right shunting is visible via color flow doppler. Valsalva maneuver demonstrated significant reversal of blood flow from right to left. Mitral Valve: The mitral valve is normal. There is no mitral valve stenosis. There is trace mitral regurgitation. Aortic Valve: The aortic valve is trileaflet. There is no aortic valve stenosis. There is trace aortic regurgitation. Tricuspid Valve: The tricuspid valve is normal. There is no tricuspid stenosis. There is mild to moderate tricuspid regurgitation. The right ventricular systolic pressure is estimated to be at least 26 mmHg based on an estimated right atrial pressure of 3 mm Hg. Pulmonic Valve: The pulmonic valve leaflets are thin and pliable; valve motion is normal. There is no pulmonic valvular stenosis. There is trace pulmonic regurgitation. Great Vessels: The aortic root is normal size. The ascending aorta is normal in size. The pulmonary artery is normal size. The IVC is of normal diameter and collapses greater than 50% with a sniff. This suggests a low right atrial pressure of 3 mm Hg. Pericardium/ Pleura There is no pericardial effusion. There is no pleural effusion. MMode/2D Measurements & Calculations LVIDd: 3.9 cm LVOT diam: 1.6 cm LVIDs: 2.0 cm Ao root diam: 2.6 cm FS: 48.7 % asc Aorta Diam: 2.8 cm IVSd: 0.80 cm LVPWd: 0.90 cm LV reardon. diameter/BSA (cm/m^2): 2.2 LV sys. diameter/BSA (cm/m^2): 1.1 LA A2 area: 16.0 cm2 RA long axis: 4.8 cm LA A4 area: 17.9 cm2 RA area: 15.7 cm2 LA length (vol): 5.4 cm RA vol: 43.7 ml LA vol: 45.0 ml RA : 24.6 ml/m2 LA vol index: 25.3 ml/m2 RVD1 (basal): 4.5 cm LVLs ap4: 5.5 cm LVLd ap2: 6.5 cm TAPSE_phl: 3.0 cm LVLs ap2: 5.4 cm Doppler Measurements & Calculations Ao V2 max: 130.5 cm/sec LVOT Max Mukund: 105.5 cm/sec Ao V2 mean: 90.2 cm/sec LV V1 max P.5 mmHg Ao max P.0 mmHg LV V1 VTI: 25.3 cm Ao mean P.0 mmHg DANIEL(I,D): 1.7 cm2 Ao V2 VTI: 29.9 cm DANIEL(V,D): 1.6 cm2 sev ratio: 0.85 DANIEL indexed to BSA (cm^2/m^2): 0.96 MV E max mukund: 86.4 cm/sec TR max mukund: 239.0 cm/sec MV A max mukund: 59.3 cm/sec TR max P.4 mmHg MV E/A: 1.5 PA V2 max: 114.0 cm/sec Med Peak E' Mukund: 8.1 cm/sec PA V2 mean: 76.0 cm/sec E/E' med: 10.7 PA mean P.0 mmHg Lat Peak E' Mukund: 11.7 cm/sec PA pr(Accel): 30.4 mmHg E/E' lat: 7.4 E/e' average: 9.0 MV dec time: 0.21 sec SV(LVOT): 50.8 ml AV VR_phl: 0.81 DANIEL(VTI)/BSA_phl: 0.96 Reading Physician:03:13 PM
== END ==
PROVIDERS: PCP Family Medicine; Referring Provider Family Medicine; Visit Provider Family Medicine
DX: E11.9 Type 2 diabetes mellitus without complications (principal); R01.1 Cardiac murmur, unspecified; Q24.8 Other specified congenital malformations of heart; I51.7 Cardiomegaly; I07.1 Rheumatic tricuspid insufficiency
CPT/HCPCS: 93306

== ENCOUNTER → 2023-01-27 07:46 | Outpatient (CLI) | payer OTHER, SELFPAY ==
[2023-01-27 09:52] LABS: Hemoglobin A1C% w Est Avg Glu 7.2 % (4.0-6.0)
== END ==
PROVIDERS: PCP Family Medicine; Referring Provider Family Medicine; Visit Provider Family Medicine
DX: E11.9 Type 2 diabetes mellitus without complications (principal)
CPT/HCPCS: 36415; 83036

== ENCOUNTER 2023-02-03 12:28 | Emergency (ER) | payer OTHER, SELFPAY ==
[2023-02-03 12:41] VITALS: BP 175/88; PULSE 81; RESP 16; TEMP 36.6; O2SAT 99; BMI 34.2
--- NOTE | 2023-02-03 12:50 | ED_ITS ---
HPI - Chest Pain <Krystina Du PA-C - Last Filed: 02/03/23 20:05> General Chief Complaint: Chest Pain Stated Complaint: T-4 shoulder/chest pain/Lwrist pain/ request EKG/ Time Seen by Provider: 02/03/23 12:50 Source: patient Mode of arrival: Family Vehicle Limitations: no limitations History of Present Illness HPI narrative: 52-year-old female with a history of hyperlipidemia, type 2 diabetes and heartburn presents with concern for chest pain. Patient states that since Tuesday of this week she is been having some left-sided chest pain that is in 1 little spot that seems to feel like a sharp pain it is intermittent she is also having pain up high in her back on both sides of her upper back and in the middle she states that this pain only occurs when she leans her head forward. She can not think of anything else that makes the pain worse or anything that makes it better. She describes the pain in her back as a ?pinched nerve type pain. She also feels that her left wrist on the thumb side and on the back of the wrist has been similarly intermittently painful with a pinched nerve type pain that does not seem to be connected to her other pains. She states that on Tuesday she did take out a heavy bag of trash but other than that can not think of anything that she may have done that could have caused a musculoskeletal problem. She does state that she has a history of problems with acid reflux and has been dealing with this a lot more in the past week or so particularly this week. She says normally she takes Tums and it gets better but has not been improving this week she is been ?afraid to eat? because it seems to trigger her reflux symptoms. She does not feel that her pain symptoms are worse with lying flat or change in position. She feels that her reflux symptoms are different and not related to the chest discomfort and upper back discomfort she is been experiencing. She denies nausea, vomiting, diarrhea, abdominal pain dizziness lightheadedness or any other symptoms. Related Data Home Medications Medication Instructions Recorded Confirmed acetaminophen 500 mg tablet 1,000 mg PO DAILY PRN Pain 09/07/18 02/07/23 (Tylenol Extra Strength) Previous Rx's Medication Instructions Recorded miscellaneous medical supply 1 each miscellaneous BID #1 ea 04/03/19 (Blood Pressure Cuff) blood-glucose meter #1 ea 03/27/20 atorvastatin 20 mg tablet 20 mg PO BEDTIME #90 tabs 02/02/23 blood sugar diagnostic (Blood #100 ea 02/02/23 Glucose Test strips) ferrous sulfate 325 mg (65 mg 325 mg PO DAILY #90 tabs 02/02/23 iron) tablet,delayed release lancets 30 gauge #100 ea 02/02/23 losartan 50 mg tablet 50 mg PO DAILY #90 tabs 02/02/23 metformin 500 mg tablet 500 mg PO BID #180 tabs 02/02/23 triamcinolone acetonide 0.1 % 1 applic topical BID #30 grams 02/02/23 topical cream pantoprazole 20 mg tablet,delayed 20 mg PO DAILY 14 days #14 tabs 02/03/23 release colchicine 0.6 mg capsule 0.6 mg PO DAILY gout pain #20 caps 02/07/23 prednisone 20 mg tablet 40 mg (2 x 20 mg) PO DAILY gout 02/07/23 flare #8 tabs Allergies Allergy/AdvReac Type Severity Reaction Status Date / Time No Known Drug Allergies Allergy Unverified 02/07/23 10:22 Review of Systems <Krystina Du PA-C - Last Filed: 02/03/23 20:05> Review of Systems Narrative: See HPI Patient History <Krystina Du PA-C - Last Filed: 02/03/23 20:05> Medical History Mixed hyperlipidemia Intermittent palpitations (2016) History of iron deficiency Type 2 diabetes mellitus (02/2019) Foot pain Chicken pox (~1999) Fibroids (~2015) Hemorrhoid (~1996) IUD (intrauterine device) in place (05/2020) Eczema (~1997) Hyperlipidemia Surgical History History of hysteroscopy (04/2015) Family History Father Hypertension Diabetes mellitus Hyperlipidemia Stroke Mother Diabetes mellitus Stroke Hyperlipidemia Sister Diabetes mellitus Gallstones Sister Diabetes mellitus Grandmother Diabetes mellitus Grandfather Hypertension Stroke History of heart disease Grandmother Hypertension Social History household members: spouse and children Smoking Status: Former smoker second hand exposure: Yes (socially) alcohol intake: never substance use type: does not use Smoking Status: Former smoker tobacco type: cigarettes alcohol intake frequency: 0-2 drinks per day Substance Use Type: does not use Exam <Krystina Du PA-C - Last Filed: 02/03/23 20:05> Narrative Exam Narrative: GENERAL: [52] year old patient appears stated age. Well-developed patient, in mild distress. HEAD: Atraumatic. Normocephalic. EYES: Pupils equal round and reactive. Extraocular motions intact. No scleral icterus. No injection or drainage. ENT: Nose without bleeding, purulent drainage. Throat without erythema, tonsillar hypertrophy or exudate. Airway patent. NECK: Trachea midline. Non tender CARDIOVASCULAR/chest wall: Regular rate and rhythm without murmurs, gallops, or rubs. There is slightly reproducible left-sided chest tenderness just lateral to the sternum at approximately rib 4 on the left. RESPIRATORY: Clear to auscultation. Breath sounds equal bilaterally. No wheezes, rales, or rhonchi. GASTROINTESTINAL: Abdomen soft, non-tender, nondistended. EXTREMITIES: No edema or joint tenderness. BACK: There is reproducible tenderness of the paraspinal muscles of the upper thoracic spine and trapezius. Otherwise Nontender without deformity or crepitance. No flank tenderness. NEURO: AOx3. SKIN: No rash or erythema of visible areas Initial Vital Signs Initial Vital Signs: Vital Signs Temperature 97.9 F 02/03/23 12:41 Pulse Rate 81 02/03/23 12:41 Respiratory Rate 16 02/03/23 12:41 Blood Pressure 175/88 H 02/03/23 12:41 Pulse Oximetry 99 02/03/23 12:41 Oxygen Delivery Method Room Air 02/03/23 12:41 <Edmar Antoine MD - Last Filed: 02/14/23 07:23> Initial Vital Signs Initial Vital Signs: Vital Signs Temperature 97.9 F 02/03/23 12:41 Pulse Rate 81 02/03/23 12:41 Respiratory Rate 16 02/03/23 12:41 Blood Pressure 175/88 H 02/03/23 12:41 Pulse Oximetry 99 02/03/23 12:41 Oxygen Delivery Method Room Air 02/03/23 12:41 Course <Krystina Du PA-C - Last Filed: 02/03/23 20:05> Course Course Narrative: Did discuss this patient with Dr. Antoine, including the plan to send her out without repeat troponin given duration of her intermittent chest discomfort symptoms now for 4 days and only present with bending her head forward. Strongly suspicious this is musculoskeletal. Also discussed sending her out with outpatient medication for her increased GERD symptoms recently as I suspect this could be a component of her recent discomfort this week and thus far she has only tried Tums. Dr. Antoine in agreement with plan. [id number] Orders Ordered: Discontinued Medications Aspirin (Aspirin 81 Mg Chew Tab) 324 mg PO NOW ONE Stop: 02/03/23 12:50 Last Admin: 02/03/23 13:17 Dose: 324 mg Documented By: JOSS Vital Signs Vital signs: Vital Signs - 8 hr 02/03/23 12:41 02/03/23 15:43 Temperature 97.9 F Pulse Rate 81 75 Respiratory Rate 16 18 Blood Pressure 175/88 H 146/83 H Pulse Oximetry 99 100 Oxygen Delivery Method Room Air Room Air <Edmar Antoine MD - Last Filed: 02/14/23 07:23> Orders Ordered: Discontinued Medications Aspirin (Aspirin 81 Mg Chew Tab) 324 mg PO NOW ONE Stop: 02/03/23 12:50 Last Admin: 02/03/23 13:17 Dose: 324 mg Documented By: JOSS Vital Signs Vital signs: Vital Signs - 8 hr 02/03/23 12:41 02/03/23 15:43 Temperature 97.9 F Pulse Rate 81 75 Respiratory Rate 16 18 Blood Pressure 175/88 H 146/83 H Pulse Oximetry 99 100 Oxygen Delivery Method Room Air Room Air MDM - Chest Pain <Krystina Du PA-C - Last Filed: 02/03/23 20:05> Differential Diagnosis Differential diagnosis: Likely chest pain and other (Atypical chest pain, costochondritis, AL, muscle strain, nerve compression) Medical Records Data Attestation: I reviewed the patient's medical records. Lab Data Attestation: I reviewed the patient's lab results. 02/03/23 13:06 02/03/23 13:06 Labs: Lab Results 02/03/23 02/03/23 Range/Units 12:55 13:06 WBC 8.7 (4.5-11.0) X10^3/uL RBC 5.14 (4.0-5.2) X10^6/uL Hgb 13.2 (12.0-16.0) g/dL Hct 40.0 (36-46) % MCV 77.9 L (80-100) fL MCH 25.7 L (26-34) PG MCHC 33.0 (30-36) % RDW 14.0 (11.6-14.8) % Plt Count 421 H (150-400) X10^3/uL Neut % (Auto) 67.6 (50-75) % Lymph % (Auto) 25.7 (25-40) % [place] % (Auto) 5.6 (3-14) % Eos % (Auto) 0.6 L (2-4) % Baso % (Auto) 0.5 (0-2) % Neut # (Auto) 5900 (7309-0436) /uL Lymph # (Auto) 2200 (9812-5666) /uL [place] # (Auto) 500 (0-900) /uL Eos # (Auto) 100 (0-450) /uL Baso # (Auto) 0 (0-100) /uL PT 11.8 (10.1-12.7) SECONDS INR 1.0 (0.9-1.3) APTT 36 (26-36) SECONDS Sodium 138 (137-145) mmol/L Potassium 4.6 (3.4-5.1) mmol/L Chloride 101 (98-107) mmol/L Carbon Dioxide 27 (22-32) mmol/L BUN 13 (7-17) mg/dL Creatinine 0.76 (0.52-1.04) mg/dL Estimated GFR > 60 (>60) mL/min BUN/Creatinine Ratio 17.1 (6-22) Glucose 153 H (70-100) mg/dL Uric Acid 6.6 H (2.5-6.2) mg/dL Calcium 10.8 H (8.4-10.2) mg/dL Magnesium 1.6 (1.6-2.3) mg/dL Total Bilirubin 0.8 (0.2-1.3) mg/dL AST 35 (14-36) IU/L ALT 71 H (<35) IU/L Alkaline Phosphatase 85 (38-126) U/L Total Creatine Kinase 38 (30-135) U/L Troponin I < 0.012 (0.01-0.034) ng/mL Total Protein 8.6 H (6.3-8.2) g/dL Albumin 4.9 (3.5-5.0) g/dL Globulin 3.7 (1.7-4.1) g/dL Albumin/Globulin Ratio 1.3 (1.0-2.8) Lipase 181 (23-300) U/L Urine RBC 1-5/hpf (0-5/HPF) Urine WBC 0-1/hpf (0-5/HPF) Ur Squamous Epith Cells 1-5 /hpf (0-5/HPF) Urine Bacteria Moderate (10-30) H (None) Ur Culture Indicated? Cult not indicated Urine Dip Bedside Urine Glucose Negative Bedside Urine Bilirubin - Negative Bedside Urine Ketone - Negative Urine Specific [place] 1.005 Bedside Urine Occult Blood +++ Bedside Urine pH 6.0 Bedside Urine Protein - Negative Bedside Urine Urobilinogen - Negative Bedside Urine Nitrite - Negative Bedside Urine Leukocytes - Negative Esterase Imaging Data Chest x-ray: My Impression: Agree with Radiology interpretation Radiologist's Impression: [address] [address] XRay Report Signed Patient: Debi Martinez V MR#: [id number] : 1970 Acct:[id number] Age/Sex: 52 / F Date of Service: 02/03/23 Loc: ED Accession Number: [id number] Procedure: XR chest 1V Ordering Provider: Edmar Antoine MD PROCEDURE: XR CHEST 1V INDICATIONS: chest pain TECHNIQUE: One view of the chest was acquired. COMPARISON: None. FINDINGS: Surgical changes and devices: None. Lungs and pleura: Lungs are clear. No pleural effusions or pneumothorax. Mediastinum: Mediastinal contours appear normal. Heart size is normal. Bones and chest wall: No suspicious bony lesions. Overlying soft tissues appear unremarkable. IMPRESSION: No acute cardiopulmonary process. Dictated by: Lito Cook M.D. on 02/03/2023 at 13:21 Approved by: Lito Cook M.D. on 02/03/2023 at 13:22 ECG Data Attestation: I personally reviewed and interpreted this ECG as follows: Interpretation: Normal sinus rhythm heart rate [address] changes noted. Normal EKG. EKG also reviewed by Dr. Antoine Treatment and disposition Shared decision making:: Shared decision-making was used to determining patient's plan of care and evaluation in the emergency department MDM Narrative Medical decision making narrative: This is a 52-year-old woman with history of diabetes and acid reflux who presents with concern for some chest pains and neck tightness in her low neck/upper thorax/trapezius. Symptoms began on Tuesday after she lifted a heavy bag of trash. Her pain is notably only present when she leans her head forward. She has no pain radiating down her arms no numbness or tingling and has difficulty reproducing the pain at all with movement of her neck in triage and on exam. Most suspicious for a musculoskeletal injury/muscle strain however given her history and some left-sided chest discomfort that has also been intermittently present for the past 4 days we do obtain a full cardiac workup including x-ray chest and labs with troponin as well as EKG. EKG is unremarkable, as is chest x-ray. Labs are also unremarkable, her platelets are very slightly elevated but otherwise no concerning findings on labs. Did discuss this patient with the attending physician Dr. Antoine, given the duration of symptoms and nature of her symptoms do not feel repeat troponin is necessary. Discharge the patient with plan to follow up closely with her PCP, monitor for new or worsening symptoms and seek re-evaluation or return to the emergency department if she is worsening or not improving. Return precautions provided, follow-up plan discussed, all questions answered. <Edmar Antoine MD - Last Filed: 02/14/23 07:23> Lab Data Labs: Lab Results 02/03/23 02/03/23 Range/Units 12:55 13:06 WBC 8.7 (4.5-11.0) X10^3/uL RBC 5.14 (4.0-5.2) X10^6/uL Hgb 13.2 (12.0-16.0) g/dL Hct 40.0 (36-46) % MCV 77.9 L (80-100) fL MCH 25.7 L (26-34) PG MCHC 33.0 (30-36) % RDW 14.0 (11.6-14.8) % Plt Count 421 H (150-400) X10^3/uL Neut % (Auto) 67.6 (50-75) % Lymph % (Auto) 25.7 (25-40) % [place] % (Auto) 5.6 (3-14) % Eos % (Auto) 0.6 L (2-4) % Baso % (Auto) 0.5 (0-2) % Neut # (Auto) 5900 (8180-2117) /uL Lymph # (Auto) 2200 (1252-7165) /uL [place] # (Auto) 500 (0-900) /uL Eos # (Auto) 100 (0-450) /uL Baso # (Auto) 0 (0-100) /uL PT 11.8 (10.1-12.7) SECONDS INR 1.0 (0.9-1.3) APTT 36 (26-36) SECONDS Sodium 138 (137-145) mmol/L Potassium 4.6 (3.4-5.1) mmol/L Chloride 101 (98-107) mmol/L Carbon Dioxide 27 (22-32) mmol/L BUN 13 (7-17) mg/dL Creatinine 0.76 (0.52-1.04) mg/dL Estimated GFR > 60 (>60) mL/min BUN/Creatinine Ratio 17.1 (6-22) Glucose 153 H (70-100) mg/dL Uric Acid 6.6 H (2.5-6.2) mg/dL Calcium 10.8 H (8.4-10.2) mg/dL Magnesium 1.6 (1.6-2.3) mg/dL Total Bilirubin 0.8 (0.2-1.3) mg/dL AST 35 (14-36) IU/L ALT 71 H (<35) IU/L Alkaline Phosphatase 85 (38-126) U/L Total Creatine Kinase 38 (30-135) U/L Troponin I < 0.012 (0.01-0.034) ng/mL Total Protein 8.6 H (6.3-8.2) g/dL Albumin 4.9 (3.5-5.0) g/dL Globulin 3.7 (1.7-4.1) g/dL Albumin/Globulin Ratio 1.3 (1.0-2.8) Lipase 181 (23-300) U/L Urine RBC 1-5/hpf (0-5/HPF) Urine WBC 0-1/hpf (0-5/HPF) Ur Squamous Epith Cells 1-5 /hpf (0-5/HPF) Urine Bacteria Moderate (10-30) H (None) Ur Culture Indicated? Cult not indicated Urine Dip Bedside Urine Glucose Negative Bedside Urine Bilirubin - Negative Bedside Urine Ketone - Negative Urine Specific [place] 1.005 Bedside Urine Occult Blood +++ Bedside Urine pH 6.0 Bedside Urine Protein - Negative Bedside Urine Urobilinogen - Negative Bedside Urine Nitrite - Negative Bedside Urine Leukocytes - Negative Esterase Discharge Plan Departure Patient Disposition: Home Clinical Impression: Atypical chest pain, Muscle strain Acid reflux disease Qualifiers: Esophagitis presence: esophagitis presence not specified Qualified Code(s): K 21.9 - Gastro-esophageal reflux disease without esophagitis Activity Restrictions/Additional Instructions: *You have been diagnosed with 52 *What to do: *Please continue to take your regular medications as directed. [ 2] New medication prescriptions sent to your pharmacy: [Pantoprozole and baclofen ] [ ] New medication written as a paper prescription [ ] No new medications given *Please follow up with your primary care provider in 2-3 days, call for an appointment. Let them know you were seen in the Emergency Department and that we ask that you be seen in follow up. We will electronically transmit a record of today's note if your PCP is in our system. We did chest x-ray EKG and labs today to further evaluate your discomfort in her chest and upper back. Based on your symptoms exam and the findings of our workup today I suspect that you have some muscle strains and muscle tightness as well as that your acid reflux has been acting up worse for you. Because it has not been controlled with Tums I did prescribe a few week course of a PPI for you to see if this gets her symptoms better under control. I would recommend you pay close attention to your diet and avoid foods that can exacerbate reflux and acid buildup. All of your cardiac labs and other labs were looking okay today. As did your chest x- ray and EKG. I did prescribe some muscle relaxer for you as this may be helpful I would caution you just low dose but to be careful with driving or operating equipment after taking it and avoid using alcohol at the same time is taking it. *If you do not have a primary care provider please contact the [facility] Resource line at [phone]. They will ask some questions about your medical history and help get you set up with a doctor in the community. *Return to Emergency Department if you should have any new, worsening or concerning symptoms, such as [fever greater than 101 F, shaking chills, worsening pain, persistent vomiting or other bothersome symptoms] Prescriptions: New pantoprazole 20 mg tablet,delayed release (DR/EC) 20 mg PO DAILY 14 Days Qty: 14 0RF No Action colchicine 0.6 mg capsule 0.6 mg PO DAILY Qty: 20 0RF Rx Instructions: take two tablets for the first dose, followed by one tablet one hour later. Then take one tablet per day until pain is gone. prednisone 20 mg tablet 40 mg PO DAILY Qty: 8 0RF atorvastatin 20 mg tablet 20 mg PO BEDTIME Qty: 90 2RF (DME) Blood Glucose Test Strip See Rx Instructions .ROUTE .MEDSUPPLY Qty: 100 3RF Rx Instructions: use to check blood sugar daily- brand per ins. ferrous sulfate 325 mg (65 mg iron) tablet,delayed release (DR/EC) 325 mg PO DAILY Qty: 90 3RF (DME) lancets 30 gauge misc See Rx Instructions .ROUTE .MEDSUPPLY Qty: 100 3RF Rx Instructions: use to check blood sugar daily- brand per ins losartan 50 mg tablet 50 mg PO DAILY Qty: 90 3RF metformin 500 mg tablet 500 mg PO BID Qty: 180 3RF triamcinolone acetonide 0.1 % cream 1 applic TOP BID Qty: 30 3RF Blood Pressure Cuff Misc 1 each MISC BID Qty: 1 0RF acetaminophen [Tylenol Extra Strength] 500 mg tablet 1,000 mg PO DAILY PRN (Reason: Pain) (DME) blood-glucose meter Kit See Rx Instructions .ROUTE .MEDSUPPLY Qty: 1 0RF Rx Instructions: use to check fasting blood sugar daily- brand per ins Referrals: Erwin Woodruff MD [Primary Care Provider] - Stand Alone Forms: Patient Portal/API ED Sign-out <Edmar Antoine MD - Last Filed: 02/14/23 07:23> Cosign ED Attending Cosignature Attestation: I was immediately available in the department for consultation. ?This documentation has been reviewed and I agree with assessment and plan. Supervised by Edmar Antoine MD
[2023-02-03] MEDS: ASPIRIN 81 MG CHEW TAB 324 MG PO (13:17)
[2023-02-03 13:19] LABS: Add Manual Diff / Slide Review NO; Basophils Absolute Auto 0 /uL (0-100); Basophils Percent Auto 0.5 % (0-2); Eosinophils Absolute Auto 100 /uL (0-450); Eosinophils Percent Auto 0.6 % (2-4); Hemoglobin 13.2 g/dL (12.0-16.0); Lymphocytes Absolute Auto 2200 /uL (1100-4500); Lymphocytes Percent Auto 25.7 % (25-40); Mean Corpuscular Hemoglobin 25.7 PG (26-34); Mean Corpuscular Volume 77.9 fL (80-100); Monocytes Absolute Auto 500 /uL (0-900); Monocytes Percent Auto 5.6 % (3-14); Neutrophils Absolute Auto 5900 /uL (1500-7000); Neutrophils Percent Auto 67.6 % (50-75); Platelet Count 421 X10^3/uL (150-400); Red Blood Cell Count 5.14 X10^6/uL (4.0-5.2); White Blood Cell Count 8.7 X10^3/uL (4.5-11.0)
[2023-02-03 13:26] LABS: Prothrombin Time 11.8 SECONDS (10.1-12.7)
[2023-02-03 13:29] LABS: PTT Partial Thromboplastin Tim 36 SECONDS (26-36)
[2023-02-03 13:31] LABS: Alanine Aminotransferase 71 IU/L (<35); Albumin 4.9 g/dL (3.5-5.0); Albumin Globulin Ratio 1.3 (1.0-2.8); Alkaline Phosphatase 85 U/L (38-126); Aspartate Aminotransferase 35 IU/L (14-36); BUN Creatinine Ratio 17.1 (6-22); Bilirubin Total 0.8 mg/dL (0.2-1.3); Blood Urea Nitrogen 13 mg/dL (7-17); Calcium 10.8 mg/dL (8.4-10.2); Carbon Dioxide 27 mmol/L (22-32); Chloride 101 mmol/L (98-107); Creatine Kinase 38 U/L (30-135); Estimated Glomerular Filt Rate > 60 mL/min (>60); Globulin 3.7 g/dL (1.7-4.1); Glucose 153 mg/dL (70-100); HEMOLYSIS < 15 (0-50); Lipase 181 U/L (23-300); Magnesium 1.6 mg/dL (1.6-2.3); Potassium 4.6 mmol/L (3.4-5.1); Sodium 138 mmol/L (137-145); Total Protein 8.6 g/dL (6.3-8.2)
[2023-02-03 13:42] LABS: Troponin I < 0.012 ng/mL (0.01-0.034)
[2023-02-03 13:59] LABS: Bacteria Urine Moderate (10-30); Culture Indicated Urine Cult Not Indicated; RBC Urine 1-5/HPF (0-5/HPF); Squamous Epithelial Cell Urine 1-5 /HPF (0-5/HPF); WBC Urine 0-1/HPF (0-5/HPF)
[2023-02-03 15:43] VITALS: BP 146/83; PULSE 75; RESP 18; O2SAT 100
--- NOTE | 2023-02-03 16:04 | PC.NURSE ---
Pt assessed by provider prior to nurse being able to assess. Pt cleared by provider for DC.
[2023-02-07 10:47] LABS: Uric Acid 6.6 mg/dL (2.5-6.2)
== END 2023-02-03 16:10 | disposition home or self-care (01) ==
PROVIDERS: Emergency Medicine; Physician Assistant; Emergency Provider Student in an Organized Health Care Education/Training Program; PCP Family Medicine
DX: R07.89 Other chest pain (principal); K21.9 Gastro-esophageal reflux disease without esophagitis; S39.011A Strain of muscle, fascia and tendon of abdomen, initial encounter
CPT/HCPCS: 36415; 71045; 80053; 81003; 81015; 82550; 83690; 83735; 84484; 84550; 85025; 85610; 85730; 93005; 99283; 99284

== ENCOUNTER → 2023-02-19 12:58 | Outpatient (CLI) | payer OTHER, SELFPAY ==
--- NOTE | 2023-02-19 | DI.MG.S_ITS ---
BILATERAL DIGITAL SCREENING MAMMOGRAM 3D/2D WITH CAD: 02/19/2023 CLINICAL: Routine screening. Comparison is made to exams dated: 02/15/2022 mammogram and 01/10/2018 mammogram - [facility]. Both breasts are heterogeneously dense, which may obscure small masses (category c / 51-75% glandular tissue). Current study was also evaluated with a Computer Aided Detection (CAD) system. No significant masses, calcifications, or other findings are seen in either breast. There has been no significant interval change. IMPRESSION: NEGATIVE There is no mammographic evidence of malignancy. A 1 year screening mammogram is recommended. Based on the Tyrer Cuzick model (a risk assessment model) the patient's lifetime risk is 11.5% and her 10 year risk is 2.7%. According to the ACR, ACS, and NCCN guidelines, an annual breast MRI exam along with mammogram is recommended if the patient's lifetime risk is 20% or greater. This exam was interpreted at Station ID: [id number]. NOTE: For mammograms, a report in lay terms will be sent to the patient. Approximately 15% of breast malignancies will not be visualized mammographically. In the management of a palpable breast mass, a negative mammogram must not discourage biopsy of a clinically suspicious lesion. Electronically Signed By: Lenny jhaveri/regina:02/21/2023 10:19:22 letter sent: Normal Exam ACR BI-RADS Category 1: Negative [id number]
== END ==
PROVIDERS: PCP Family Medicine; Referring Provider Family Medicine; Visit Provider Family Medicine
DX: Z12.31 Encounter for screening mammogram for malignant neoplasm of breast (principal)
CPT/HCPCS: 77063; 77067

== ENCOUNTER → 2023-05-02 07:58 | Outpatient (CLI) | payer OTHER, SELFPAY ==
[2023-05-02 09:07] LABS: Hemoglobin A1C% w Est Avg Glu 6.7 % (4.0-6.0)
[2023-05-02 09:45] LABS: Alanine Aminotransferase 75 IU/L (<35); Albumin 4.3 g/dL (3.5-5.0); Albumin Globulin Ratio 1.4 (1.0-2.8); Alkaline Phosphatase 91 U/L (38-126); Aspartate Aminotransferase 37 IU/L (14-36); BUN Creatinine Ratio 15.5 (6-22); Bilirubin Total 0.8 mg/dL (0.2-1.3); Blood Urea Nitrogen 11 mg/dL (7-17); Calcium 10.2 mg/dL (8.4-10.2); Carbon Dioxide 29 mmol/L (22-32); Chloride 101 mmol/L (98-107); Estimated Glomerular Filt Rate > 60 mL/min (>60); Glucose 118 mg/dL (70-100); HEMOLYSIS < 15 (0-50); Potassium 5.2 mmol/L (3.4-5.1); Sodium 138 mmol/L (137-145); Total Protein 7.3 g/dL (6.3-8.2)
== END ==
LOC: LAB 07:59
PROVIDERS: PCP Family Medicine; Referring Provider Family Medicine; Visit Provider Family Medicine
DX: E11.9 Type 2 diabetes mellitus without complications (principal); E78.2 Mixed hyperlipidemia
CPT/HCPCS: 36415; 80053; 83036

== ENCOUNTER → 2023-08-05 07:20 | Outpatient (CLI) | payer OTHER, SELFPAY ==
[2023-08-05 08:51] LABS: Alanine Aminotransferase 62 IU/L (<35); Albumin 4.5 g/dL (3.5-5.0); Albumin Globulin Ratio 1.7 (1.0-2.8); Alkaline Phosphatase 101 U/L (38-126); Aspartate Aminotransferase 32 IU/L (14-36); BUN Creatinine Ratio 18.4 (6-22); Bilirubin Total 0.5 mg/dL (0.2-1.3); Blood Urea Nitrogen 14 mg/dL (7-17); Calcium 9.9 mg/dL (8.4-10.2); Carbon Dioxide 28 mmol/L (22-32); Chloride 105 mmol/L (98-107); Estimated Glomerular Filt Rate > 60 mL/min (>60); Globulin 2.6 g/dL (1.7-4.1); Glucose 110 mg/dL (70-100); HEMOLYSIS < 15 (0-50); Potassium 4.9 mmol/L (3.4-5.1); Sodium 139 mmol/L (137-145); Total Protein 7.1 g/dL (6.3-8.2)
[2023-08-05 11:06] LABS: Hemoglobin A1C% w Est Avg Glu 7.1 % (4.0-6.0)
== END ==
PROVIDERS: PCP Family Medicine; Referring Provider Family Medicine; Visit Provider Family Medicine
DX: E78.2 Mixed hyperlipidemia (principal); E11.9 Type 2 diabetes mellitus without complications
CPT/HCPCS: 36415; 80053; 83036

== ENCOUNTER → 2023-09-16 07:52 | Outpatient (CLI) | payer OTHER, SELFPAY ==
[2023-09-16 08:28] LABS: Add Manual Diff / Slide Review NO; Basophils Absolute Auto 100 /uL (0-100); Basophils Percent Auto 0.8 % (0-2); Eosinophils Absolute Auto 200 /uL (0-450); Hemoglobin 12.2 g/dL (12.0-16.0); Lymphocytes Absolute Auto 2400 /uL (1100-4500); Lymphocytes Percent Auto 35.3 % (25-40); Mean Corpuscular HGB Conc 33.1 % (30-36); Mean Corpuscular Hemoglobin 26.2 PG (26-34); Mean Corpuscular Volume 79.2 fL (80-100); Monocytes Absolute Auto 500 /uL (0-900); Monocytes Percent Auto 7.2 % (3-14); Neutrophils Absolute Auto 3600 /uL (1500-7000); Neutrophils Percent Auto 53.7 % (50-75); Platelet Count 406 X10^3/uL (150-400); Red Blood Cell Count 4.67 X10^6/uL (4.0-5.2); Red Cell Distribution Width 14.2 % (11.6-14.8); White Blood Cell Count 6.7 X10^3/uL (4.5-11.0)
[2023-09-16 09:26] LABS: BUN Creatinine Ratio 14.1 (6-22); Blood Urea Nitrogen 10 mg/dL (7-17); Calcium 10.1 mg/dL (8.4-10.2); Carbon Dioxide 31 mmol/L (22-32); Chloride 105 mmol/L (98-107); Estimated Glomerular Filt Rate > 60 mL/min (>60); Glucose 121 mg/dL (70-100); HEMOLYSIS < 15 (0-50); Sodium 139 mmol/L (137-145)
[2023-09-16 09:36] LABS: Potassium 5.5 mmol/L (3.4-5.1)
== END ==
LOC: LAB 07:53
PROVIDERS: PCP Family Medicine; Referring Provider Internal Medicine; Visit Provider Internal Medicine
DX: Q21.10 Atrial septal defect, unspecified (principal)
CPT/HCPCS: 36415; 80048; 85025

== ENCOUNTER → 2023-11-02 13:39 | Outpatient (CLI) | payer OTHER, SELFPAY ==
--- NOTE | 2023-11-02 | DI.ECHO.S_ITS ---
[place] [facility]+ [facility] : : [address] : : [place] : : [id number] : : Phone: [phone] Echocardiogram Report + + :Name: MELODY SUE V Study Date: 11/02/2023 Height: 60 in : :[facility] ReadingLocation: Weight: 175 lb : : Gender: Female BSA: 1.8 m2 : :: 1970 Age: 53 yrs BP: 128/90 mmHg: :Reason For Study: 1 MONTH S/P ASD CLOSURE : :Ordering Physician: RICO, : :SONYA Performed By: Abe Bond : :Referring: SONYA GÓMEZ : + + Interpretation Summary The ejection fraction is estimated to be 60-65%. Diastolic parameters suggest probable normal left ventricular diastolic function and normal filling pressures. The right ventricle is mildly dilated. The right ventricular systolic function is normal. There is no Doppler evidence for an interatrial shunt. 16 mm Amplatzer atrial septal defect occluder device in place. There is mild tricuspid regurgitation. The right ventricular systolic pressure is estimated to be at least 36 mmHg based on an estimated right atrial pressure of 3 mm Hg. Procedure: A two-dimensional transthoracic echocardiogram with color flow and Doppler was performed. The study quality was technically adequate. Comparison is made with the echocardiogram of 09/20/2023. The patient was in sinus rhythm with heart rates between 09/20/2023 bpm during the exam. Left Ventricle: The left ventricle is normal in size. Left ventricular wall thickness is borderline increased. The ejection fraction is estimated to be 60-65%. Diastolic parameters suggest probable normal left ventricular diastolic function and normal filling pressures. Right Ventricle: The right ventricle is mildly dilated. The right ventricular systolic function is normal. Atria: The left atrial size is normal. Right atrial size is normal. 16 mm Amplatzer atrial septal defect occluder device. There is no Doppler evidence for an interatrial shunt. Mitral Valve: The mitral valve is normal. There is no mitral valve stenosis. There is trace mitral regurgitation. Aortic Valve: The aortic valve is trileaflet. There is no aortic valve stenosis. No aortic regurgitation is present. Tricuspid Valve: The tricuspid valve is normal. There is no tricuspid stenosis. There is mild tricuspid regurgitation. The right ventricular systolic pressure is estimated to be at least 36 mmHg based on an estimated right atrial pressure of 3 mm Hg. Pulmonic Valve: The pulmonic valve is not well visualized. There is no pulmonic valvular stenosis. There is a trace or physiologic amount of pulmonic regurgitation. Great Vessels: The aortic root is normal size. The dimensions of the ascending aorta are normal. The IVC is of normal diameter and collapses greater than 50% with a sniff. This suggests a low right atrial pressure of 3 mm Hg. Pericardium/ Pleura There is no pericardial effusion. There is no pleural effusion. MMode/2D Measurements & Calculations LVIDd: 4.3 cm LVOT diam: 1.9 cm LVIDs: 2.8 cm Ao root diam: 3.3 cm FS: 35.5 % asc Aorta Diam: 3.0 cm IVSd: 1.1 cm Ao Arch Diam (Prox Trans): 2.3 cm LVPWd: 1.1 cm LV reardon. diameter/BSA (cm/m^2): 2.4 LV sys. diameter/BSA (cm/m^2): 1.6 LA A2 area: 20.6 cm2 RA long axis: 5.0 cm LA A4 area: 21.0 cm2 RA area: 18.1 cm2 LA length (vol): 6.3 cm RA vol: 55.4 ml LA vol: 58.4 ml RA : 31.4 ml/m2 LA vol index: 33.1 ml/m2 IVC diam: 1.5 cm RVD1 (basal): 3.4 cm RVD2 (mid): 2.6 cm TAPSE: 2.2 cm Doppler Measurements & Calculations Ao V2 max: 149.0 cm/sec LVOT Max George: 126.0 cm/sec Ao V2 mean: 108.4 cm/sec LV V1 max P.4 mmHg Ao max P.9 mmHg LV V1 VTI: 27.1 cm Ao mean P.0 mmHg DANIEL(I,D): 2.5 cm2 Ao V2 VTI: 31.4 cm DANIEL(V,D): 2.4 cm2 sev ratio: 0.86 DANIEL indexed to BSA (cm^2/m^2): 1.4 MV E max george: 104.8 cm/sec TR max george: 287.1 cm/sec MV A max george: 71.5 cm/sec TR max P.0 mmHg MV E/A: 1.5 PA V2 max: 120.9 cm/sec Med Peak E' George: 7.8 cm/sec PA V2 mean: 88.5 cm/sec E/E' med: 13.5 PA mean P.3 mmHg Lat Peak E' George: 10.1 cm/sec PA pr(Accel): 44.7 mmHg E/E' lat: 10.4 E/e' average: 12.0 MV dec time: 0.20 sec SV(OT): 77.3 ml Reading Physician:04:40 PM
== END ==
PROVIDERS: PCP Family Medicine; Referring Provider Nurse Practitioner Acute Care; Visit Provider Nurse Practitioner Acute Care
DX: Q21.10 Atrial septal defect, unspecified (principal); I07.1 Rheumatic tricuspid insufficiency
CPT/HCPCS: 93306

== ENCOUNTER → 2023-11-08 08:14 | Outpatient (CLI) | payer OTHER, SELFPAY ==
[2023-11-08 10:03] LABS: Add Manual Diff / Slide Review NO; Basophils Absolute Auto 0 /uL (0-100); Basophils Percent Auto 0.5 % (0-2); Eosinophils Absolute Auto 200 /uL (0-450); Eosinophils Percent Auto 2.3 % (2-4); Hematocrit 34.3 % (36-46); Hemoglobin 11.2 g/dL (12.0-16.0); Lymphocytes Absolute Auto 1800 /uL (1100-4500); Lymphocytes Percent Auto 25.8 % (25-40); Mean Corpuscular HGB Conc 32.7 % (30-36); Mean Corpuscular Hemoglobin 25.8 PG (26-34); Monocytes Absolute Auto 500 /uL (0-900); Monocytes Percent Auto 6.7 % (3-14); Neutrophils Absolute Auto 4400 /uL (1500-7000); Neutrophils Percent Auto 64.7 % (50-75); Platelet Count 361 X10^3/uL (150-400); Red Blood Cell Count 4.35 X10^6/uL (4.0-5.2); Red Cell Distribution Width 14.2 % (11.6-14.8); White Blood Cell Count 6.9 X10^3/uL (4.5-11.0)
[2023-11-08 10:22] LABS: Alanine Aminotransferase 40 IU/L (<35); Albumin 4.3 g/dL (3.5-5.0); Albumin Globulin Ratio 1.9 (1.0-2.8); Alkaline Phosphatase 75 U/L (38-126); Aspartate Aminotransferase 29 IU/L (14-36); Bilirubin Total 0.5 mg/dL (0.2-1.3); Blood Urea Nitrogen 9 mg/dL (7-17); Calcium 9.4 mg/dL (8.4-10.2); Carbon Dioxide 25 mmol/L (22-32); Chloride 106 mmol/L (98-107); Cholesterol 159 mg/dL (140-199); Estimated Glomerular Filt Rate > 60 mL/min (>60); Globulin 2.3 g/dL (1.7-4.1); Glucose 107 mg/dL (70-100); HDL Cholesterol 51 mg/dL (40-60); HEMOLYSIS < 15 (0-50); LDL Cholesterol Calculated 79 mg/dL (<100); Potassium 4.7 mmol/L (3.4-5.1); Sodium 138 mmol/L (137-145); Total Protein 6.6 g/dL (6.3-8.2); Triglycerides 147 mg/dL (35-150)
[2023-11-08 10:38] LABS: Hemoglobin A1C% w Est Avg Glu 6.3 % (4.0-6.0)
[2023-11-08 11:32] LABS: Creatinine Urine Random 45.66 mg/dL
[2023-11-08 11:41] LABS: Microalbumin Urine Random 0.6 mg/dL (0-1.6)
[2023-11-09 03:37] LABS: Apolipoprotein B 76 mg/dL (<90)
== END ==
PROVIDERS: PCP Family Medicine; Referring Provider Family Medicine; Visit Provider Family Medicine
DX: E78.2 Mixed hyperlipidemia (principal); Z86.39 Personal history of other endocrine, nutritional and metabolic disease; E11.9 Type 2 diabetes mellitus without complications; R00.2 Palpitations
CPT/HCPCS: 36415; 80053; 80061; 82043; 82172; 82570; 83036; 84443; 85025

== ENCOUNTER → 2024-01-30 07:20 | Outpatient (CLI) | payer OTHER, SELFPAY ==
[2024-01-30 07:46] LABS: Add Manual Diff / Slide Review NO; Basophils Absolute Auto 0 /uL (0-100); Basophils Percent Auto 0.6 % (0-2); Eosinophils Absolute Auto 300 /uL (0-450); Eosinophils Percent Auto 5.9 % (2-4); Hematocrit 37.9 % (36-46); Hemoglobin 12.4 g/dL (12.0-16.0); Lymphocytes Absolute Auto 1800 /uL (1100-4500); Lymphocytes Percent Auto 33.3 % (25-40); Mean Corpuscular HGB Conc 32.6 % (30-36); Mean Corpuscular Hemoglobin 25.3 PG (26-34); Mean Corpuscular Volume 77.7 fL (80-100); Monocytes Absolute Auto 600 /uL (0-900); Monocytes Percent Auto 11.8 % (3-14); Neutrophils Absolute Auto 2500 /uL (1500-7000); Neutrophils Percent Auto 48.4 % (50-75); Platelet Count 360 X10^3/uL (150-400); Red Blood Cell Count 4.88 X10^6/uL (4.0-5.2); Red Cell Distribution Width 13.6 % (11.6-14.8); White Blood Cell Count 5.3 X10^3/uL (4.5-11.0)
[2024-01-30 07:59] LABS: Hemoglobin A1C% w Est Avg Glu 6.9 % (4.0-6.0)
[2024-01-30 08:13] LABS: HEMOLYSIS < 15 (0-50); Iron 56 ug/dL (37-170)
[2024-01-30 08:23] LABS: Percent Iron Saturation 17 % (15-50); Total Iron Binding Capacity 333 ug/dL (265-497); Transferrin 267 mg/dL (206-381)
[2024-01-30 08:48] LABS: Ferritin 36 ng/mL (11-264)
== END ==
PROVIDERS: PCP Family Medicine; Referring Provider Family Medicine; Visit Provider Family Medicine
DX: E78.2 Mixed hyperlipidemia (principal); R00.2 Palpitations; Z86.39 Personal history of other endocrine, nutritional and metabolic disease; E11.9 Type 2 diabetes mellitus without complications; R80.9 Proteinuria, unspecified; R01.1 Cardiac murmur, unspecified
CPT/HCPCS: 36415; 82728; 83036; 83540; 83550; 85025

== ENCOUNTER → 2024-02-03 08:32 | Outpatient (CLI) | payer OTHER, SELFPAY ==
[2024-02-06 11:10] LABS: Fecal Immunochemical Test Negative (Negative)
== END ==
PROVIDERS: PCP Family Medicine; Referring Provider Family Medicine; Visit Provider Family Medicine
DX: Z12.11 Encounter for screening for malignant neoplasm of colon (principal); Z86.39 Personal history of other endocrine, nutritional and metabolic disease
CPT/HCPCS: 82274

== ENCOUNTER → 2024-02-22 07:51 | Outpatient (CLI) | payer OTHER, SELFPAY ==
--- NOTE | 2024-02-22 07:52 | DI.MG.S_ITS ---
BILATERAL DIGITAL SCREENING MAMMOGRAM 3D/2D WITH CAD: 02/22/2024 CLINICAL: Routine screening. Comparison is made to exams dated: 02/19/2023 mammogram, 02/15/2022 mammogram, 01/23/2021 mammogram, 01/21/2020 mammogram, 01/18/2019 mammogram, and 01/10/2018 mammogram - [facility]. The breasts are heterogeneously dense, which may obscure small masses (category c / 51-75% glandular tissue). Current study was also evaluated with a Computer Aided Detection (CAD) system. No significant masses, calcifications, or other findings are seen in either breast. There has been no significant interval change. IMPRESSION: NEGATIVE There is no mammographic evidence of malignancy. A 1 year screening mammogram is recommended. Based on the Tyrer Cuzick model (a risk assessment model) the patient's lifetime risk is 10.0% and her 10 year risk is 2.5%. According to the ACR, ACS, and NCCN guidelines, an annual breast MRI exam along with mammogram is recommended if the patient's lifetime risk is 20% or greater. This exam was interpreted at Station ID: [id number]. NOTE: For mammograms, a report in lay terms will be sent to the patient. Approximately 15% of breast malignancies will not be visualized mammographically. In the management of a palpable breast mass, a negative mammogram must not discourage biopsy of a clinically suspicious lesion. Electronically Signed By: Stefania Urbina M.D., Ph.D. kamari/regina:02/22/2024 18:22:35 letter sent: Normal Exam ACR BI-RADS Category 1: Negative
== END ==
PROVIDERS: PCP Family Medicine; Referring Provider Family Medicine; Visit Provider Family Medicine
DX: Z12.31 Encounter for screening mammogram for malignant neoplasm of breast (principal); R92.333 Mammographic heterogeneous density, bilateral breasts
CPT/HCPCS: 77063; 77067

== ENCOUNTER → 2024-05-29 08:57 | Outpatient (CLI) | payer OTHER, SELFPAY ==
[2024-05-29 09:48] LABS: Add Manual Diff / Slide Review NO; Basophils Absolute Auto 0 /uL (0-100); Basophils Percent Auto 0.4 % (0-2); Eosinophils Absolute Auto 200 /uL (0-450); Hemoglobin 11.7 g/dL (12.0-16.0); Lymphocytes Absolute Auto 2400 /uL (1100-4500); Lymphocytes Percent Auto 34.5 % (25-40); Mean Corpuscular HGB Conc 32.6 % (30-36); Mean Corpuscular Hemoglobin 25.4 PG (26-34); Mean Corpuscular Volume 77.8 fL (80-100); Monocytes Absolute Auto 500 /uL (0-900); Monocytes Percent Auto 7.7 % (3-14); Neutrophils Absolute Auto 3700 /uL (1500-7000); Neutrophils Percent Auto 54.4 % (50-75); Platelet Count 386 X10^3/uL (150-400); Red Blood Cell Count 4.63 X10^6/uL (4.0-5.2); Red Cell Distribution Width 14.3 % (11.6-14.8); White Blood Cell Count 6.9 X10^3/uL (4.5-11.0)
[2024-05-29 09:57] LABS: Hemoglobin A1C% w Est Avg Glu 6.3 % (4.0-6.0)
[2024-05-29 10:21] LABS: Alanine Aminotransferase 72 IU/L (<35); Albumin 4.7 g/dL (3.5-5.0); Albumin Globulin Ratio 1.9 (1.0-2.8); Alkaline Phosphatase 115 U/L (38-126); Aspartate Aminotransferase 42 IU/L (14-36); BUN Creatinine Ratio 18.7 (6-22); Bilirubin Total 0.4 mg/dL (0.2-1.3); Blood Urea Nitrogen 14 mg/dL (7-17); Calcium 9.8 mg/dL (8.4-10.2); Carbon Dioxide 23 mmol/L (22-32); Chloride 104 mmol/L (98-107); Cholesterol 159 mg/dL (140-199); Estimated Glomerular Filt Rate > 60 mL/min (>60); Globulin 2.5 g/dL (1.7-4.1); Glucose 123 mg/dL (70-100); HDL Cholesterol 49 mg/dL (40-60); HEMOLYSIS < 15 (0-50); LDL Cholesterol Calculated 86 mg/dL (<100); Potassium 4.3 mmol/L (3.4-5.1); Sodium 137 mmol/L (137-145); Total Protein 7.2 g/dL (6.3-8.2); Triglycerides 119 mg/dL (35-150)
[2024-05-29 10:52] LABS: TSH w/ Reflex to FT4 1.07 uIU/mL (0.47-4.68)
== END ==
LOC: LAB 08:58
PROVIDERS: PCP Family Medicine; Referring Provider Family Medicine; Visit Provider Family Medicine
DX: E78.2 Mixed hyperlipidemia (principal); R00.2 Palpitations; Z86.39 Personal history of other endocrine, nutritional and metabolic disease; E11.9 Type 2 diabetes mellitus without complications
CPT/HCPCS: 36415; 80053; 80061; 83036; 84443; 85025

== ENCOUNTER → 2024-08-29 07:39 | Outpatient (CLI) | payer OTHER, SELFPAY ==
[2024-08-29 08:29] LABS: Add Manual Diff / Slide Review NO; Basophils Absolute Auto 0 /uL (0-100); Basophils Percent Auto 0.7 % (0-2); Eosinophils Absolute Auto 100 /uL (0-450); Eosinophils Percent Auto 2.4 % (2-4); Hematocrit 35.7 % (36-46); Hemoglobin 11.5 g/dL (12.0-16.0); Lymphocytes Absolute Auto 2100 /uL (1100-4500); Lymphocytes Percent Auto 33.4 % (25-40); Mean Corpuscular HGB Conc 32.1 % (30-36); Mean Corpuscular Hemoglobin 25.4 PG (26-34); Mean Corpuscular Volume 79.1 fL (80-100); Monocytes Absolute Auto 500 /uL (0-900); Monocytes Percent Auto 7.5 % (3-14); Neutrophils Absolute Auto 3600 /uL (1500-7000); Platelet Count 403 X10^3/uL (150-400); Red Blood Cell Count 4.51 X10^6/uL (4.0-5.2); Red Cell Distribution Width 14.6 % (11.6-14.8); White Blood Cell Count 6.3 X10^3/uL (4.5-11.0)
[2024-08-29 08:41] LABS: Hemoglobin A1C% w Est Avg Glu 6.5 % (4.0-6.0)
[2024-08-29 08:46] LABS: HEMOLYSIS < 15 (0-50); Iron 55 ug/dL (37-170)
[2024-08-29 08:58] LABS: Percent Iron Saturation 16 % (15-50); Total Iron Binding Capacity 347 ug/dL (265-497); Transferrin 280 mg/dL (206-381)
[2024-08-29 09:21] LABS: Ferritin 16 ng/mL (11-264)
[2024-08-29 09:25] LABS: TSH w/ Reflex to FT4 2.37 uIU/mL (0.47-4.68)
[2024-08-29 12:47] LABS: Creatinine Urine Random 97.65 mg/dL
[2024-08-29 12:48] LABS: Microalbumin Urine Random 6.8 mg/dL (0-1.6)
[2024-08-30 04:09] LABS: Apolipoprotein B 67 mg/dL (<90)
== END ==
PROVIDERS: PCP Family Medicine; Referring Provider Family Medicine; Visit Provider Family Medicine
DX: E78.2 Mixed hyperlipidemia (principal); E11.9 Type 2 diabetes mellitus without complications; Z86.39 Personal history of other endocrine, nutritional and metabolic disease
CPT/HCPCS: 36415; 82043; 82172; 82570; 82728; 83036; 83540; 83550; 84443; 85025

== ENCOUNTER → 2024-09-26 12:15 | Outpatient (CLI) | payer OTHER, SELFPAY ==
--- NOTE | 2024-09-26 12:17 | DI.ECHO.S_ITS ---
[place] [facility]+ [facility] : : [address] : : [place] : : [id number] : : Phone: [phone] Echocardiogram Report + + :Name: MELODY SUE V Study Date: 09/26/2024 Height: 60 in : :[facility] : Weight: 180 lb : : Gender: Female BSA: 1.8 m2 : :: 1970 Age: 53 yrs BP: 142/95 mmHg: :Reason For Study: ASD CLOSURE : :Ordering Physician: : :TONYA CASTRO D.O. Performed By: Peggy Reynolds : :Referring: SONYA GÓMEZ : + + Interpretation Summary The ejection fraction is estimated to be 60-65%. Diastolic parameters suggest probable normal left ventricular diastolic function and normal filling pressures. The right ventricle is normal in size and function. 16 mm Amplatzer atrial septal defect occluder device in place. Injection of contrast documented no interatrial shunt. There is mild tricuspid regurgitation. Right ventricular systolic pressure is estimated to be 26 mmHg plus the clinically estimated CVP which cannot be estimated on this exam. Compared to the prior study 11/02/2023, no significant change. Procedure: A two-dimensional transthoracic echocardiogram with color flow and Doppler was performed. The study quality was technically adequate. Comparison is made with the echocardiogram of 11/02/2023. A saline contrast injection was performed to assess for cardiac shunting. The injection was performed through an intravenous line in the left arm. The patient was in sinus rhythm with heart rates between 59-69 bpm during the exam. Left Ventricle: The left ventricle is normal in size and wall thickness. The ejection fraction is estimated to be 60-65%. Diastolic parameters suggest probable normal left ventricular diastolic function and normal filling pressures. Right Ventricle: The right ventricle is normal in size and function. Atria: The left atrial size is normal. Right atrial size is normal. 16 mm Amplatzer atrial septal defect occluder device in place. Injection of contrast documented no interatrial shunt. Mitral Valve: The mitral valve leaflets appear to open well. There is trace mitral regurgitation. Aortic Valve: The aortic valve is trileaflet. The aortic valve opens well. There is no aortic valve stenosis. No aortic regurgitation is present. Tricuspid Valve: The tricuspid valve leaflets are thin and pliable. There is mild tricuspid regurgitation. Right ventricular systolic pressure is estimated to be 26 mmHg plus the clinically estimated CVP which cannot be estimated on this exam. Pulmonic Valve: The pulmonic valve leaflets are thin and pliable; valve motion is normal. There is trace pulmonic regurgitation. Great Vessels: The aortic root is normal size. The dimensions of the ascending aorta are normal. The inferior vena cava was not well visualized. Pericardium/ Pleura There is no pericardial effusion. There is no pleural effusion. MMode/2D Measurements & Calculations LVIDd: 4.6 cm LVOT diam: 2.0 cm LVIDs: 2.8 cm Ao root diam: 3.0 cm FS: 39.7 % asc Aorta Diam: 2.8 cm IVSd: 0.70 cm Ao Arch Diam (Prox Trans): 2.8 cm LVPWd: 0.78 cm LV reardon. diameter/BSA (cm/m^2): 2.6 LV sys. diameter/BSA (cm/m^2): 1.6 LA A2 area: 18.6 cm2 RA long axis: 5.1 cm LA A4 area: 21.3 cm2 RA area: 15.8 cm2 LA length (vol): 6.1 cm RA vol: 41.7 ml LA vol: 55.1 ml RA : 23.3 ml/m2 LA vol index: 30.9 ml/m2 RVD1 (basal): 3.8 cm RVD2 (mid): 3.6 cm TAPSE: 2.1 cm Doppler Measurements & Calculations Ao V2 max: 153.5 cm/sec LVOT Max Mukund: 116.5 cm/sec Ao V2 mean: 111.9 cm/sec LV V1 max P.4 mmHg Ao max P.4 mmHg LV V1 VTI: 27.8 cm Ao mean P.4 mmHg DANIEL(I,D): 2.5 cm2 Ao V2 VTI: 34.2 cm DANIEL(V,D): 2.3 cm2 sev ratio: 0.81 DANIEL indexed to BSA (cm^2/m^2): 1.4 MV E max mukund: 95.6 cm/sec TR max mukund: 256.8 cm/sec MV A max mukund: 51.0 cm/sec TR max P.4 mmHg MV E/A: 1.9 PA V2 max: 88.0 cm/sec Med Peak E' Mukund: 8.6 cm/sec PA V2 mean: 59.6 cm/sec E/E' med: 11.1 PA mean P.6 mmHg Lat Peak E' Mukund: 10.9 cm/sec PA pr(Accel): 35.3 mmHg E/E' lat: 8.8 E/e' average: 9.9 MV dec time: 0.24 sec SV(OT): 85.6 ml Reading Physician:09:21 PM
== END ==
PROVIDERS: PCP Family Medicine; Referring Provider Nurse Practitioner Acute Care; Visit Provider Nurse Practitioner Acute Care
DX: Q21.10 Atrial septal defect, unspecified (principal); I07.1 Rheumatic tricuspid insufficiency
CPT/HCPCS: 93306

== ENCOUNTER 2024-11-30 11:50 | Emergency (ER) | payer OTHER, SELFPAY ==
[2024-11-30] VITALS (27 sets, daily range): BP systolic 103–166; BP diastolic 55–79; PULSE 73–105; RESP 16–20; TEMP 36.8–37.1; O2SAT 97–100; BMI 35.2
--- NOTE | 2024-11-30 14:15 | ED.RECABL ---
HPI - Recheck/Abnormal Lab/Rx <Jomar Peraza, DO - Last Filed: 11/30/24 17:38> General Chief Complaint: Recheck/Abnormal Lab/Rx Stated Complaint: Sent to get Blood transfusion Time Seen by Provider: 11/30/24 12:05 Source: patient Mode of arrival: Ambulatory History of Present Illness HPI narrative: 54y F hx of hld, t2d, htn, with IUD previously helping with menstruation but has had menstrual period for 17 days straight presents anemia with hg 7.6 sent over from MD PCP office for blood transfusion as she is scheduled to leave for trip out of town on Tuesday. Patient states she goes through 3 pads a day for the past 17 days. Other than what is stated 14 point review system is negative. Related Data Home Medications ?Medication ?Instructions ?Recorded ?Confirmed acetaminophen 500 mg tablet 1,000 mg PO DAILY PRN Pain 09/07/18 11/30/24 (Tylenol Extra Strength) Previous Rx's ?Medication ?Instructions ?Recorded miscellaneous medical supply 1 each miscellaneous BID #1 ea 04/03/19 (Blood Pressure Cuff) blood-glucose meter #1 ea 03/27/20 blood sugar diagnostic (Blood #100 ea 02/02/23 Glucose Test strips) lancets 30 gauge #100 ea 02/02/23 ferrous sulfate 325 mg (65 mg 325 mg PO DAILY #90 tabs 02/02/24 iron) tablet,delayed release metformin 500 mg tablet 500 mg PO BID #180 tabs 02/02/24 triamcinolone acetonide 0.1 % 1 applic topical BID #30 grams 02/02/24 topical cream pantoprazole 20 mg tablet,delayed 20 mg PO DAILY #60 tabs 06/01/24 release atorvastatin 20 mg tablet 20 mg PO BEDTIME #90 tabs 08/30/24 losartan 50 mg tablet 100 mg (2 x 50 mg) PO DAILY #180 08/30/24 tabs medroxyprogesterone 10 mg tablet See Rx Instructions PO DAILY #84 11/30/24 tabs Allergies Allergy/AdvReac Type Severity Reaction Status Date / Time No Known Drug Allergies Allergy Verified 11/30/24 11:55 Review of Systems <Jomar Peraza DO - Last Filed: 11/30/24 17:38> Review of Systems ROS Unobtainable: All systems reviewed & are unremarkable except as noted in HPI and below Patient History <Jomar Peraza, DO - Last Filed: 11/30/24 17:38> Medical History Mixed hyperlipidemia Intermittent palpitations (2016) History of iron deficiency Type 2 diabetes mellitus (02/2019) Foot pain Chicken pox (~1999) Fibroids (~2015) Hemorrhoid (~1996) IUD (intrauterine device) in place (05/2020) Eczema (~1997) Hyperlipidemia Surgical History History of hysteroscopy (04/2015) Family History Father Hypertension Diabetes mellitus Hyperlipidemia Stroke Mother Diabetes mellitus Stroke Hyperlipidemia Sister Diabetes mellitus Gallstones Sister Diabetes mellitus Grandmother Diabetes mellitus Grandfather Hypertension Stroke History of heart disease Grandmother Hypertension Social History household members: spouse and children Smoking Status: Former smoker second hand exposure: Yes (socially) alcohol intake: never substance use type: does not use Smoking Status: Former smoker tobacco type: cigarettes alcohol intake frequency: 0-2 drinks per day Exam <Jomar Peraza, - Last Filed: 11/30/24 17:38> Narrative Exam Narrative: GENERAL: [54] year old patient appears stated age. Well-developed patient, in mild distress. HEAD: Atraumatic. Normocephalic. EYES: Pupils equal round and reactive. Extraocular motions intact. No scleral icterus. No injection or drainage. NECK: Trachea midline. Non tender CARDIOVASCULAR: Regular rate and rhythm without murmurs, gallops, or rubs. RESPIRATORY: Clear to auscultation. Breath sounds equal bilaterally. No wheezes, rales, or rhonchi. GASTROINTESTINAL: Abdomen soft, non-tender, nondistended. EXTREMITIES: No edema or joint tenderness. BACK: Nontender without deformity or crepitance. No flank tenderness. NEURO: AOx3. SKIN: No rash or erythema of visible areas Initial Vital Signs Initial Vital Signs: Vital Signs Temperature 98.6 F 11/30/24 11:53 Pulse Rate 105 H 11/30/24 11:53 Respiratory Rate 20 11/30/24 11:53 Blood Pressure 166/79 H 11/30/24 11:53 Pulse Oximetry 100 11/30/24 11:53 Oxygen Delivery Method Room Air 11/30/24 11:53 <Arlyn Carmona DO - Last Filed: 12/01/24 04:11> Initial Vital Signs Initial Vital Signs: Vital Signs Temperature 98.6 F 11/30/24 11:53 Pulse Rate 105 H 11/30/24 11:53 Respiratory Rate 20 11/30/24 11:53 Blood Pressure 166/79 H 11/30/24 11:53 Pulse Oximetry 100 11/30/24 11:53 Oxygen Delivery Method Room Air 11/30/24 11:53 Course <Jomar Peraza, DO - Last Filed: 11/30/24 17:38> Orders Ordered: ED Orders 11/30/24 19:41 CBC Auto Diff [Complete Blood Count AUTO DIFF] Stat Vital Signs Vital signs: Vital Signs - 8 hr 11/30/24 20:30 11/30/24 20:30 Pulse Rate 75 Blood Pressure 121/64 Pulse Oximetry 99 <Arlyn Carmona DO - Last Filed: 12/01/24 04:11> Orders Ordered: ED Orders 11/30/24 19:41 CBC Auto Diff [Complete Blood Count AUTO DIFF] Stat Vital Signs Vital signs: Vital Signs - 8 hr 11/30/24 20:30 11/30/24 20:30 Pulse Rate 75 Blood Pressure 121/64 Pulse Oximetry 99 MDM - Recheck/Abnormal Lab/Rx <Jomar Peraza, DO - Last Filed: 11/30/24 17:38> Lab Data 11/30/24 19:41 11/30/24 12:01 Labs: Lab Results 11/30/24 11/30/24 Range/Units 12:01 19:41 WBC 7.7 8.9 (4.5-11.0) X10^3/uL RBC 2.84 L 3.34 L (4.0-5.2) X10^6/uL Hgb 7.3 L 8.8 L (12.0-16.0) g/dL Hct 22.1 L 26.3 L (36-46) % MCV 77.8 L 78.6 L (80-100) fL MCH 25.7 L 26.4 (26-34) PG MCHC 33.0 33.6 (30-36) % RDW 14.1 14.8 (11.6-14.8) % Plt Count 403 H 326 (150-400) X10^3/uL Neut % (Auto) 73.7 68.0 (50-75) % Lymph % (Auto) 19.7 L 25.4 (25-40) % [place] % (Auto) 4.7 5.0 (3-14) % Eos % (Auto) 1.5 L 1.1 L (2-4) % Baso % (Auto) 0.4 0.5 (0-2) % Neut # (Auto) 5700 6100 (9665-2978) /uL Lymph # (Auto) 1500 2300 (2384-6625) /uL [place] # (Auto) 400 400 (0-900) /uL Eos # (Auto) 100 100 (0-450) /uL Baso # (Auto) 0 0 (0-100) /uL Sodium 139 (137-145) mmol/L Potassium 4.1 (3.4-5.1) mmol/L Chloride 103 (98-107) mmol/L Carbon Dioxide 25 (22-32) mmol/L BUN 8 (7-17) mg/dL Creatinine 0.85 (0.52-1.04) mg/dL Estimated GFR > 60 (>60) mL/min BUN/Creatinine Ratio 9.4 (6-22) Glucose 163 H (70-99) mg/dL Calcium 9.0 (8.4-10.2) mg/dL Blood Type B Positive Antibody Screen Negative Crossmatch See Detail MDM Narrative Medical decision making narrative: All lab work, vital signs, nurse triage note, medication list, previous ER visits, and all imaging studies reviewed. Pt hg today 7.3 from 7.6 2 days ago. Patient is getting 2 units of PRBC at this time we will will rechecked CBC after blood transfusion is completed. She has already seen OBGYN regarding her options including hysterectomy but at this time has not decided to proceed with this option yet. <Arlny Carmona, DO - Last Filed: 12/01/24 04:11> Lab Data Labs: Lab Results 09/05/25 09/05/25 Range/Units 12:01 19:41 WBC 7.7 8.9 (4.5-11.0) X10^3/uL RBC 2.84 L 3.34 L (4.0-5.2) X10^6/uL Hgb 7.3 L 8.8 L (12.0-16.0) g/dL Hct 22.1 L 26.3 L (36-46) % MCV 77.8 L 78.6 L (80-100) fL MCH 25.7 L 26.4 (26-34) PG MCHC 33.0 33.6 (30-36) % RDW 14.1 14.8 (11.6-14.8) % Plt Count 403 H 326 (150-400) X10^3/uL Neut % (Auto) 73.7 68.0 (50-75) % Lymph % (Auto) 19.7 L 25.4 (25-40) % [place] % (Auto) 4.7 5.0 (3-14) % Eos % (Auto) 1.5 L 1.1 L (2-4) % Baso % (Auto) 0.4 0.5 (0-2) % Neut # (Auto) 5700 6100 (6383-0163) /uL Lymph # (Auto) 1500 2300 (7695-3345) /uL [place] # (Auto) 400 400 (0-900) /uL Eos # (Auto) 100 100 (0-450) /uL Baso # (Auto) 0 0 (0-100) /uL Sodium 139 (137-145) mmol/L Potassium 4.1 (3.4-5.1) mmol/L Chloride 103 (98-107) mmol/L Carbon Dioxide 25 (22-32) mmol/L BUN 8 (7-17) mg/dL Creatinine 0.85 (0.52-1.04) mg/dL Estimated GFR > 60 (>60) mL/min BUN/Creatinine Ratio 9.4 (6-22) Glucose 163 H (70-99) mg/dL Calcium 9.0 (8.4-10.2) mg/dL Blood Type B Positive Antibody Screen Negative Crossmatch See Detail MDM Narrative Medical decision making narrative: All lab work, vital signs, nurse triage note, medication list, previous ER visits, and all imaging studies reviewed. Pt hg today 7.3 from 7.6 2 days ago. Patient is getting 2 units of PRBC at this time we will will rechecked CBC after blood transfusion is completed. She has already seen OBGYN regarding her options including hysterectomy but at this time has not decided to proceed with this option yet. Patient signed out to myself while receiving blood transfusion is planning to get 2 units PRBCs with resect CBC. She has been following with OBGYN regarding possible hysterectomy for persistent vaginal bleeding. Patient's hemoglobin was 11.5 in August of 2024 was 7.6 on 11/27/2024, 7 6 on 11/28/2024 and 7 3 today. Repeat post transfusion is 8.8. Platelets and white count are appropriate chemistries are appropriate glucose is 163. Did discuss with the patient as she is planning to travel [place] that I would not recommend that if she has received has a blood transfusion. Patient did receive medication from her physician progesterone to help with her bleeding. She states it seems to be helpful so far her 1st 2 doses today. Discharge Plan Departure Patient Disposition: Home Clinical Impression: Abnormal bleeding in menstrual cycle Anemia Qualifiers: Anemia type: other cause Other causes of anemia: other cause, not classified Qualified Code(s): D64.89 - Other specified anemias Instructions: DI for Blood Transfusion Activity Restrictions/Additional Instructions: Follow up with your physician. You did receive 2 units of blood here in the emergency department, your repeat hemoglobin after your transfusion was 8.8 with a hematocrit of 26. Please return if you have new or worsening symptoms, fevers, new chest pain or shortness of breath, lightheadedness or passing out, new swelling in your extremities, going through a pad or tampon more than hourly or other new or concerning changes. Prescriptions: No Action (DME) Blood Glucose Test Strip See Rx Instructions .ROUTE .MEDSUPPLY Qty: 100 3RF Rx Instructions: use to check blood sugar daily- brand per ins. (DME) lancets 30 gauge misc See Rx Instructions .ROUTE .MEDSUPPLY Qty: 100 3RF Rx Instructions: use to check blood sugar daily- brand per ins Blood Pressure Cuff Misc 1 each MISC BID Qty: 1 0RF losartan 50 mg tablet 100 mg PO DAILY Qty: 180 3RF atorvastatin 20 mg tablet 20 mg PO BEDTIME Qty: 90 3RF acetaminophen [Tylenol Extra Strength] 500 mg tablet 1,000 mg PO DAILY PRN (Reason: Pain) (DME) blood-glucose meter Kit See Rx Instructions .ROUTE .MEDSUPPLY Qty: 1 0RF Rx Instructions: use to check fasting blood sugar daily- brand per ins metformin 500 mg tablet 500 mg PO BID Qty: 180 3RF ferrous sulfate 325 mg (65 mg iron) tablet,delayed release (DR/EC) 325 mg PO DAILY Qty: 90 3RF triamcinolone acetonide 0.1 % cream 1 applic TOP BID Qty: 30 3RF pantoprazole 20 mg tablet,delayed release (DR/EC) 20 mg PO DAILY Qty: 60 1RF medroxyprogesterone 10 mg tablet See Rx Instructions PO DAILY Qty: 84 0RF Rx Instructions: Take 2 tabs (20 mg) three times daily for 7 days, then tapering to 2 tabs (20 mg) once daily for 3 weeks. Referrals: Erwin Woodruff MD [Primary Care Provider, Family Practice] Stand Alone Forms: Patient Portal/API
[2024-11-30 15:03] LABS: Add Manual Diff / Slide Review NO; Hematocrit 22.1 % (36-46); Hemoglobin 7.3 g/dL (12.0-16.0); Lymphocytes Absolute Auto 1500 /uL (1100-4500); Mean Corpuscular HGB Conc 33.0 % (30-36); Mean Corpuscular Hemoglobin 25.7 PG (26-34); Mean Corpuscular Volume 77.8 fL (80-100); Platelet Count 403 X10^3/uL (150-400)
[2024-11-30 15:09] LABS: Blood Urea Nitrogen 8 mg/dL (7-17); Calcium 9.0 mg/dL (8.4-10.2); Carbon Dioxide 25 mmol/L (22-32); Chloride 103 mmol/L (98-107); Estimated Glomerular Filt Rate > 60 mL/min (>60); Glucose 163 mg/dL (70-99); HEMOLYSIS < 15 (0-50); Potassium 4.1 mmol/L (3.4-5.1); Sodium 139 mmol/L (137-145)
[2024-11-30 20:00] LABS: Add Manual Diff / Slide Review NO; Hematocrit 26.3 % (36-46); Hemoglobin 8.8 g/dL (12.0-16.0); Lymphocytes Absolute Auto 2300 /uL (1100-4500); Mean Corpuscular HGB Conc 33.6 % (30-36); Mean Corpuscular Hemoglobin 26.4 PG (26-34); Mean Corpuscular Volume 78.6 fL (80-100); Platelet Count 326 X10^3/uL (150-400)
== END 2024-11-30 21:01 | disposition home or self-care (01) ==
PROVIDERS: Family Medicine; Emergency Provider Emergency Medicine; PCP Family Medicine
DX: N92.6 Irregular menstruation, unspecified (principal); D64.89 Other specified anemias; Z97.5 Presence of (intrauterine) contraceptive device
CPT/HCPCS: 36430; 80048; 85025; 86850; 86900; 86901; 99283; 99284; P9016

== ENCOUNTER → 2025-03-05 16:56 | Outpatient (CLI) | payer OTHER, SELFPAY ==
--- NOTE | 2025-03-05 16:57 | DI.MG.S_ITS ---
MM screening mammo BI: 03/05/2025. BI-RADS: 1 CLINICAL: 54-year old female for bilateral screening mammogram. Tyrer-Cuzick lifetime risk of 10.1%. No personal or first-degree family history of breast cancer. PRIOR EXAMS 02/22/2024, 02/19/2023, 02/15/2022, 01/23/2021, 01/21/2020. MAMMOGRAPHY TECHNIQUE: 2D and 3D (tomosynthesis) digital mammographic views obtained, with additional images as needed for full coverage. Current study was also evaluated with a Computer Aided Detection (CAD) system. DENSITY C. The breasts are heterogeneously dense, which may obscure small masses. MAMMOGRAPHY FINDINGS Bilateral: No suspicious mass, asymmetry, microcalcification, or other abnormality seen. No significant change from comparison. IMPRESSION: * No evidence of malignancy. RECOMMENDATIONS Bilateral * Annual screening mammography. OVERALL ASSESSMENT CATEGORY BI-RADS-1: Negative. The [employer] [place] recommends annual screening mammography beginning at age 40 for women with average risk of breast cancer. ELECTRONICALLY SIGNED: Lenny Akins M.D. on 03/06/2025 at 10:38:31 AM PT Interpreting Station ID: [id number]
== END ==
PROVIDERS: PCP Family Medicine; Referring Provider Family Medicine; Visit Provider Family Medicine
DX: Z12.31 Encounter for screening mammogram for malignant neoplasm of breast (principal); R92.333 Mammographic heterogeneous density, bilateral breasts
CPT/HCPCS: 77063; 77067

== ENCOUNTER → 2025-03-25 08:06 | Outpatient (CLI) | payer OTHER, SELFPAY ==
[2025-03-25 09:05] LABS: Add Manual Diff / Slide Review NO; Hematocrit 31.3 % (36-46); Hemoglobin 10.1 g/dL (12.0-16.0); Lymphocytes Absolute Auto 2000 /uL (1100-4500); Mean Corpuscular HGB Conc 32.4 % (30-36); Mean Corpuscular Hemoglobin 25.1 PG (26-34); Mean Corpuscular Volume 77.3 fL (80-100); Platelet Count 494 X10^3/uL (150-400)
[2025-03-25 09:19] LABS: Hemoglobin A1C% w Est Avg Glu 8.1 % (4.0-6.0)
[2025-03-25 09:21] LABS: HEMOLYSIS < 15 (0-50); Iron 37 ug/dL (37-170)
[2025-03-25 09:33] LABS: Percent Iron Saturation 10 % (15-50); Total Iron Binding Capacity 386 ug/dL (265-497); Transferrin 342 mg/dL (206-381)
[2025-03-25 10:04] LABS: Ferritin 10 ng/mL (11-264)
== END ==
PROVIDERS: PCP Family Medicine; Referring Provider Obstetrics & Gynecology; Visit Provider Obstetrics & Gynecology
DX: E11.9 Type 2 diabetes mellitus without complications (principal); E78.2 Mixed hyperlipidemia; Z86.39 Personal history of other endocrine, nutritional and metabolic disease
CPT/HCPCS: 36415; 82728; 83036; 83540; 83550; 85025